=== PATIENT | female | born 2000 | race Caucasian/White ===

== ENCOUNTER 2023-09-22 14:31 | Emergency (ER) | payer OTHER, SELFPAY ==
[2023-09-22 14:43] VITALS: BP 144/95; PULSE 106; RESP 20; TEMP 36.7; O2SAT 100; BMI 26.6
--- NOTE | 2023-09-22 14:48 | ED.GENADUL1 ---
HPI - General Adult General Chief complaint: Vaginal Bleeding Stated complaint: MISCARRIAGE Time Seen by Provider: 09/22/23 14:34 Source: patient Mode of arrival: walk-in Limitations: no limitations Related Data Home Medications Medication Instructions Recorded Confirmed No Known Home Medications 09/22/23 09/22/23 Allergies Allergy/AdvReac Type Severity Reaction Status Date / Time No Known Drug Allergies Allergy Verified 09/22/23 14:47 PFSH PFSH Social History Smoking status: Never smoker Exam Constitutional Vital Signs, click to edit/add: Last Vital Signs Temp 98.1 F 09/22/23 14:43 Pulse 106 H 09/22/23 14:43 Resp 20 09/22/23 14:43 BP 144/95 H 09/22/23 14:43 Pulse Ox 100 09/22/23 14:43 O2 Del Method Room Air 09/22/23 14:43 Course Vital Signs Vital signs: Vital Signs Temperature 98.1 F 09/22/23 14:43 Pulse Rate 106 H 09/22/23 14:43 Respiratory Rate 20 09/22/23 14:43 Blood Pressure 144/95 H 09/22/23 14:43 Pulse Oximetry 100 09/22/23 14:43 Oxygen Delivery Method Room Air 09/22/23 14:43 Temperature 98.1 F 09/22/23 14:43 Pulse Rate 106 H 09/22/23 14:43 Respiratory Rate 20 09/22/23 14:43 Blood Pressure 144/95 H 09/22/23 14:43 Pulse Oximetry 100 09/22/23 14:43 Oxygen Delivery Method Room Air 09/22/23 14:43 Medical Decision Making MDM Narrative Medical decision making narrative: patient declined the need for Tylenol or nausea medication. her quantitative hCG level is only 32, she has a positive blood type and ultrasound with no evidence of intrauterine gestation or ectopic , patient was counseled by attending physician that she has suffered a miscarriage, she should follow closely with her CAREER SERVICES REPRESENTATIVE and return to the Emergency Room if symptoms change or worsen. Medical Records Medical records reviewed: Yes I reviewed the patient's medical records Lab Data Lab results reviewed: Yes I reviewed the patient's lab results Labs: Lab Results 09/22/23 09/22/23 Range/Units 15:00 15:07 HCG, Quant 32 mIU/mL Urine Color Lt. yellow (YELLOW) Urine Clarity Clear (CLEAR) Urine pH 6.0 (5.0-9.0) Ur Specific [place] 1.010 (1.005-1.025) Urine Protein Negative (NEG/TRACE) mg/dL Urine Glucose (UA) Negative (NEGATIVE) mg/dL Urine Ketones Negative (NEGATIVE) mg/dL Urine Occult Blood Moderate A (NEGATIVE) Urine Nitrite Negative (NEGATIVE) Urine Bilirubin Negative (NEGATIVE) Urine Urobilinogen 0.2 (0.2-1.0) EU/dL Ur Leukocyte Esterase Negative (NEGATIVE) Urine RBC 2-5 A (0-2) #/HPF Urine WBC None seen (NONE SEEN) #/HPF Ur Squamous Epith Cells Rare (NONE/RARE) #/LPF Urine Crystals None seen (None Seen) #/HPF Urine Bacteria Trace A (NONE SEEN) #/HPF Urine Casts None seen (NONE SEEN) #/LPF Urine Mucus None seen (NONE SEEN) Ur Culture Indicated? No Blood Type A Positive Imaging Data US - abdomen: Attestation: I have reviewed the pertinent imaging results. Radiologist's impression: Procedure: US OB transvaginal PROCEDURE: US OB transvaginal, 09/22/2023 3:15 PM EDT CLINICAL INDICATIONS: Encounter for first trimester , vaginal bleeding for one day, cramping 1 para 0 LMP 08/15/2023 Expected gestational age by LMP: 5 weeks 3 days Expected ELIANA by LMP: 05/21/2024 COMPARISON: None TECHNIQUE: Transvaginal first trimester obstetric sonogram, grayscale, color evaluation. FINDINGS: Uterus: Nonspecific focal thickening of the endometrium of the lower uterine segment measures up to 1.0 x 0.9 x 0.2 cm. Convincing sign of intrauterine is not identified. No sign of intrauterine gestational sac, yolk sac, embryonic pole or cardiac activity are documented. Maternal right ovary: 2.5 x 1.5 x 1.6 cm, volume 3 mL. Normal sonographic morphology. Maternal left ovary: Not identified. DUPLEX PELVIC VASCULATURE: There is intact flow within the right ovarian tissue by color-flow assessment. Arterial spectral tracing is identified from within. Right resistive index 0.55. No maternal pelvic mass or free fluid. IMPRESSION: 1. Nonspecific focal thickening of the lower uterine segment endometrial cavity up to 1.0 cm. 2. uncertain location. Convincing sign of intrauterine or extrauterine could not be documented. Differential considerations include too early to confirm by sonography, near complete spontaneous , ectopic . Correlation with serial quantitative beta-hCG and follow-up sonography is needed. 3. Normal maternal right ovarian sonographic morphology 4. Nonvisualization maternal left ovary 5. No sonographic sign of maternal right adnexal torsion Electronically authenticated by: STEFANO MORALES Date: 09/22/2023 16:09 Discharge Plan Discharge Chief Complaint: Vaginal Bleeding Clinical Impression: Miscarriage Patient Disposition: Home, Self-Care Time of Disposition Decision: 16:32 Condition: Good Mode of Transportation: Private Vehicle Prescriptions / Home Meds: No Action No Known Home Medications Instructions: Miscarriage (ED) Stand Alone Forms: Portal Instructions Referrals: ROBEL HOLT [Primary Care Provider] - 1 week ANNEMARIE PAYNE [Physician] - 1 week Discharge Date/Time: 09/22/23 16:38
[2023-09-22 15:33] LABS: Bilirubin Urine NEGATIVE (NEGATIVE); Blood Urine MODERATE (NEGATIVE); Clarity Urine CLEAR (CLEAR); Color Urine LT. YELLOW (YELLOW); Glucose Urine UA NEGATIVE (NEGATIVE); Ketones Urine NEGATIVE (NEGATIVE); Leukocyte Esterase Urine NEGATIVE (NEGATIVE); Nitrite Urine NEGATIVE (NEGATIVE); Protein Urine NEGATIVE (NEG/TRACE); Urobilinogen Urine 0.2 EU/dL (0.2-1.0)
[2023-09-22 15:45] LABS: Urine Microscopic Indicated YES
[2023-09-22 16:01] LABS: Bacteria Urine TRACE #/HPF (NONE SEEN); Cast Seen? NONE SEEN #/LPF (NONE SEEN); Crystals Seen? None Seen #/HPF (None Seen); Mucus Urine NONE SEEN (NONE SEEN); Squamous Epithelial Cell Urine RARE #/LPF (NONE/RARE); Urine Culture Indicated NO; WBC Urine NONE SEEN #/HPF (NONE SEEN)
[2023-09-22 16:08] LABS: HCG Quantitative 32 mIU/mL
== END 2023-09-22 16:38 | disposition home or self-care (01) ==
PROVIDERS: Physician Assistant; Emergency Provider Emergency Medicine; PCP Family Medicine
DX: O03.9 Complete or unspecified spontaneous abortion without complication (principal)
CPT/HCPCS: 36415; 76817; 81001; 84702; 86900; 86901; 99285

== ENCOUNTER 2023-09-29 16:48 | Outpatient (OUT) | payer OTHER, SELFPAY ==
[2023-09-29 17:41] LABS: HCG Quantitative <1 mIU/mL
== END 2023-09-29 16:49 | disposition home or self-care (01) ==
PROVIDERS: PCP Family Medicine; Visit Provider Obstetrics & Gynecology
DX: O46.90 Antepartum hemorrhage, unspecified, unspecified trimester (principal); Z3A.00 Weeks of gestation of pregnancy not specified
CPT/HCPCS: 36415; 84702

== ENCOUNTER 2024-07-21 14:26 | Emergency (ER) | payer OTHER, SELFPAY ==
[2024-07-21 14:29] VITALS: BP 145/91; PULSE 99; TEMP 36.6; O2SAT 99; BMI 26.8
--- OUTSIDE RECORDS SUMMARY | 2024-07-21 14:33 | XMS_ITS | CCD ---
Author Organization [facility] Inform ion [facility] Care Team Providers Care 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 Name Role Phone NONE, XXXX Primary Care Physician Unavailab Robel Singh Unavailable YANET, DR HUSTON Attending Unavailable YANET, DR HUSTON Consulting Unavailable YANET, DR HUSTON Primary Care Unavailable YANET, DR UHSTON Admitting Unavailable Unavailable Primary Care Provider UnavailMERCEDES Mckenna Referring Unavailable PETE, MERCEDES Attending Unavailable Unallocated, Noms Provider Primary Care Provider DO Robel Holt Primary Care Provider [phone] MANAS French Attending Provider Robel Holt Primary Care Unavailable Roma French Attending Unavailable Roma French Admitting Unavailable PRASAD PAYNE Attending Unavailable PRASAD PAYNE Attending Unavailable ROMA FRENCH Attending Unavailable PRASAD PAYNE Attending Unavailable PRASAD PAYNE Referring Unavailable Medications Current Medications Medication Drug Class(es) Dates Sig (Normalized) Sig (Original) Vit-Fe Fumarate-FA ( 1 PLUS 1 PO) (3 sources) Vit-Fe Fumarate-FA ( 1 PLUS 1 PO) Take by mouth. 0 Active Progesterone 200 MG suppository (3 sources) Start: 10-03-2023 Progesterone 200 MG suppository Indications: Infertility counseling , Encounter for gynecological examination (general) (routine) without abnormal findings Insert 1 suppository into the vagina at bedtime. Do this all until 12 completed weeks of . 30 suppository 3 10/03/2023 Active promethazine hydrochloride 25 mg oral tablet (2 sources) Phenothiazine Start: 01-12-2024 End: 02-11-2024 take 1 tablet by mouth every six hours for nausea promethazine (Phenergan) 25 MG tablet Indications: Hx of migraine during , Vomiting or nausea of Take 1 tablet (25 mg) by mouth every 6 (six) hours if needed for nausea (Headache) 30 tablet 1 01/12/2024 02/11/2024 Active Completed/Discontinued Medications Medication Drug Class(es) Dates Sig (Normalized) Sig (Original) predniSONE 20 mg oral tablet (1 source) Start: 04-12-2022 take 1 tablet by mouth once daily predniSONE 20 mg Tab 20 mg = 1 tab(s), Oral, As Directed, Take three tabs by mouth daily for 4 days, take two tabs by mouth daily for 4 days, take one tab by mouth daily for 4 days, # 24 tab(s), Refills(s) 0, Pharmacy: [facility], 174, cm, 04/12/22 10:47:00 EDT... Start Date: 04/12/22 Status: Ordered vit no.124/iron/folic ( VITAMIN ORAL) (1 source) vit no.124/iron/folic ( VITAMIN ORAL) Take by mouth. 0 Active Comment on above: Take by mouth. 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 Allergic reactions (2 sources) Contact dermatitis; Translations: [Unspecified contact dermatitis, unspecified cause] Onset: 04-12-2022 Episodic Contraceptive and procreative management (4 sources) Patient encounter status; Translations: [Encounter for fertility testing] Onset: 08-23-2023 08-23-2023 Episodic Female infertility (1 source) Primary female infertility; Translations: [Female infertility, unspecified] 08-23-2023 Chronic Malaise and fatigue (1 source) Other fatigue; Translations: [Other fatigue] Onset: 06-11-2024 Episodic Menstrual disorders (2 sources) Menorrhagia; Translations: [Excessive and frequent menstruation with regular cycle] Chronic Other complications of (2 sources) Nausea and vomiting; Translations: [Vomiting of , unspecified] 01-12-2024 Episodic Other complications of (2 sources) A/N care: poor obstetric history; Translations: [Supervision of with other poor reproductive or obstetric history, first trimester] 01-12-2024 Episodic Other nervous system disorders (2 sources) H/O: migraine; Translations: [Personal history of other diseases of the nervous system and sense organs] 01-12-2024 Episodic Other nutritional; endocrine; and metabolic disorders (1 source) Overweight in adulthood with body mass index of 25 or more but less than 30; Translations: [Body mass index (BMI) 26.0-26.9, adult] Onset: 04-12-2022 Episodic Other nutritional; endocrine; and metabolic disorders (1 source) Abnormal weight gain Episodic Other and delivery including normal (1 source) Normal ; Translations: [Encounter for supervision of normal first , first trimester] 01-04-2024 Episodic Other skin disorders (1 source) Rash and other nonspecific skin eruption; Translations: [Rash and other nonspecific skin eruption] Onset: 06-11-2024 Episodic Residual codes; unclassified (1 source) Gestation period, 11 weeks; Translations: [11 weeks gestation of ] 01-04-2024 Episodic Residual codes; unclassified (2 sources) Gestation period, 6 weeks; Translations: [Less than 8 weeks gestation of ] 01-12-2024 Episodic Residual codes; unclassified (1 source) Family history of diseases of the skin and subcutaneous tissue; Translations: [Family history of diseases of the skin and subcutaneous tissue] Onset: 06-11-2024 Episodic Residual codes; unclassified (1 source) Personal history of other complications of , childbirth and the puerperium; Translations: [Personal history of other complications of , childbirth and the puerperium] Onset: 06-11-2024 Episodic Syncope (1 source) Syncope and collapse Episodic Unclassified (1 source) Body mass index 20-24 - normal 03-25-2020 Unclassified (1 source) Influenza vaccination status 03-25-2020 Unclassified (1 source) Non-smoker 03-25-2020 Results Test Name Value Interpretation Reference Range Facil ity ALOK Antinuclear Antibodieson 06-11-2024 Antinuclear Abs, IFA Negative Normal . [facility] Comment on above: Result Comment: Nega tive <1:80 Borderline 1:80 Positive >1:80 ICAP nomenclature: AC-0 For more information about Hep-2 cell patterns use ANApatterns.org, the official website for the International Consensus on Antinuclear Antibody (ALOK) Patterns (ICAP). Performed at: - [facility] [id number] Forest Fire Officer: Dimas Vincent PhD, Phone: [phone] PERFORMED BY: [place] [address] PATHOLOGIST FRAME TABLE OPERATOR HELPER BENTON CASTELLANOS M.D. Performed By: #### A NA, RA #### [facility] , C reactive protein [Mass/vol ume] in Serum or PlasmaOrdered By: Roma French on 06-11-2024 CRP [Mass/Vol] < 0.5 mg/dL 0.0-0.5 [facility] C-Reactive Proteinon 024 CRP [Mass/Vol] mg/L Normal 0.0-0.5 [facility] Comment on above: Result Comment: PERF ORMED BY: [place] [address] PATHOLOGIST FRAME TABLE OPERATOR HELPER BENTON CASTELLANOS M.D. Performed By: #### C RP #### [facility] [address] [place] [address] [place] Erythrocyte Sedimentation Ra basilia 06-11-2024 ESR (Bld) [Velocity] 17 mm/h Normal 0-19 [facility] Comment on above: Result Comment: PERF ORMED BY: [place] [address] PATHOLOGIST FRAME TABLE OPERATOR HELPER BENTON CASTELLANOS M.D. Performed By: #### C BCNO, ESR #### [facility] [address] [place] [address] [place] Erythrocyte distribution wid th [Ratio] by Automated countOrdered By: Roma French on 06-11-2024 Erythrocyte distribution width (RBC) [Ratio] 13.3 % Normal 11.9-15.3 [facility] Comment on above: Performed By: #### C BCNO, ESR #### [facility] [address] [place] [address] [place] Erythrocyte sedimentation ra te by Photometric methodOrdered By: Roma French on 06-11-2024 ESR Photometric method (Bld) [Velocity] 17 mm/hr 0-19 [facility] Erythrocytes [#/volume] in B lood by Automated countOrdered By: Roma French on 06-11-2024 RBC (Bld) [#/Vol] 4.94 10*6/uL Normal 3.60-5.00 [facility] Comment on above: Performed By: #### C BCNO, ESR #### [address] Hematocrit [Volume Fraction] of Blood by Automated countOrdered By: Roma French on 06-11-2024 Hematocrit (Bld) [Volume fraction] 42.7 % Normal 34.0-46.4 [facility] Comment on above: Performed By: #### C BCNO, ESR #### [address] Hemoglobin [Mass/volume] in BloodOrdered By: Roma French on 06-11-2024 Hemoglobin (Bld) [Mass/Vol] 14.2 g/dL Normal 11.8-15.4 [facility] Comment on above: Performed By: #### C BCNO, ESR #### [address] Hemogram CBC Without Diffon 06-11-2024 Mean Corpuscular HGB Conc 33.4 g/dL Normal 32.0-35.0 [facility] Comment on above: Performed By: #### C BCNO, ESR #### [address] WBC (Bld) [#/Vol] 8.5 10*3/uL Normal 3.8-11.6 The Counts include 234 beds at the [facility] Comment on above: Performed By: #### C BCNO, ESR #### [place] [address] [place] Leukocytes [#/volume] correc tanvir for nucleated erythrocytes in Blood by Automated counOrdered By: Roma French on 06-11-2024 WBC corrected for nucl RBC Auto (Bld) [#/Vol] 8.5 10*3/uL 3.8-11.6 [facility] MCH [Entitic mass] by Automa tanvir countOrdered By: Roma French on 06-11-2024 MCH (RBC) [Entitic mass] 28.8 pg Normal 24.7-34.3 [facility] Comment on above: Performed By: #### C JAN, ESR #### [address] MCHC Auto (RBC) [Mass/Vol]Or dered By: Roma French on 06-11-2024 MCHC (RBC) [Mass/Vol] 33.4 g/dL 32.0-35.0 [facility] MCV [Entitic volume] by Auto mated countOrdered By: Roma French on 06-11-2024 MCV (RBC) [Entitic vol] 86.3 fL Normal 80-100 [facility] Comment on above: Performed By: #### C JAN, ESR #### [address] Platelet mean volume [Entiti c volume] in Blood by Automated countOrdered By: Roma French on 06-11-2024 Platelet mean volume (Bld) [Entitic vol] 8.8 fL Normal 6.3-10.7 [facility] Comment on above: Performed By: #### C JAN, ESR #### [address] Platelets [#/volume] in Bloo d by Automated countOrdered By: Roma French on 06-11-2024 Platelets (Bld) [#/Vol] 293 10*3/uL Normal 150-450 [facility] Comment on above: Performed By: #### C JAN, ESR #### [address] Rheumatoid Factoron 06-11-20 Rheumatoid Factor <10.0 Normal <14.0 [facility] Comment on above: Result Comment: Perf ormed at: - [facility] [address] [id number] Forest Fire Officer: Dimas Vincent PhD, Phone: [phone] Performed By: #### A RA CHRISTOPHER #### [facility] , CBC panel Auto (Bld)on 08-23 Erythrocyte distribution width (RBC) [Ratio] 12.0 % Normal 11.5-15.0 [facility] Comment on above: Order Comment: Speci men Type: BLOOD SPECIMEN Ordering Facility: [facility] Address: [address] [place] [address] Performed By: #### 5 8410-2 #### [facility] [place] [id number] [facility] [place] [address] [place] Hematocrit (Bld) [Volume fraction] 42.7 % Normal 36.0-46.0 [facility] Comment on above: Order Comment: Speci men Type: BLOOD SPECIMEN Ordering Facility: [facility] Address: [address] [place] [address] Performed By: #### 5 8410-2 #### [facility] [place] [id number] [address] [place] [address] [place] Hemoglobin (Bld) [Mass/Vol] 14.4 g/dL Normal 11.5-15.5 [facility] Comment on above: Order Comment: Speci men Type: BLOOD SPECIMEN Ordering Facility: [facility] Address: [address] [place] [address] Performed By: #### 5 8410-2 #### [facility] CLIA [id number] [address] [place] [address] [place] MCH (RBC) [Entitic mass] 29.7 pg Normal 26.0-34.0 [facility] Comment on above: Order Comment: Speci men Type: BLOOD SPECIMEN Ordering Facility: [facility] Address: [address] [place] [address] Performed By: #### 5 8410-2 #### [facility] CLIA [id number] [address] [place] [address] [place] MCHC (RBC) [Mass/Vol] 33.7 g/dL Normal 30.5-36.0 [facility] Comment on above: Order Comment: Speci men Type: BLOOD SPECIMEN Ordering Facility: [facility] Address: [address] [place], [place] [id number] Performed By: #### 5 8410-2 #### [facility] CLIA [id number] [address] [place] [address] [place] MCV (RBC) [Entitic vol] 88.0 fL Normal 80.0-100.0 [facility] Comment on above: Order Comment: Speci men Type: BLOOD SPECIMEN Ordering Facility: [facility] Address: [address] [place], [place] [id number] Performed By: #### 5 8410-2 #### [facility] CLIA [id number] [address] [place] [address] [place] Nucleated RBC (Bld) [#/Vol] 10*3/uL Normal <0.01 [facility] Comment on above: Order Comment: Speci men Type: BLOOD SPECIMEN Ordering Facility: [facility] Address: [address] [place], [place] [id number] Performed By: #### 5 8410-2 #### [facility] CLIA [id number] [address] [place] [address] [place] Platelet mean volume (Bld) [Entitic vol] 10.3 fL Normal 9.0-12.7 [facility] Comment on above: Order Comment: Speci men Type: BLOOD SPECIMEN Ordering Facility: [facility] Address: [address] [place] [address] Performed By: #### 5 8410-2 #### [facility] CLIA [id number] [address] [place] [address] [place] Platelets (Bld) [#/Vol] 305 10*3/uL Normal 150-400 [facility] Comment on above: Order Comment: Speci men Type: BLOOD SPECIMEN Ordering Facility: [facility] Address: [address] [place] [address] Performed By: #### 5 8410-2 #### [facility] CLIA [id number] [address] [place] [address] [place] RBC (Bld) [#/Vol] 4.85 10*6/uL Normal 3.90-5.20 [facility] Comment on above: Order Comment: Speci men Type: BLOOD SPECIMEN Ordering Facility: [facility] Address: [address] [place] [address] Performed By: #### 5 8410-2 #### [facility] CLIA [id number] [address] [place] [address] [place] WBC (Bld) [#/Vol] 6.73 10*3/uL Normal 3.70-11.00 [facility] Comment on above: Order Comment: Speci men Type: BLOOD SPECIMEN Ordering Facility: [facility] Address: [address] [place] [address] Performed By: #### 5 8410-2 #### [facility] CLIA [id number] [address] [place] [address] [place] Erythrocyte distribution width (RBC) [Ratio] 12.0 % 11.5 - 15.0 % [facility] Hematocrit (Bld) [Volume fraction] 42.7 % 36.0 - 46.0 % [facility] Hemoglobin (Bld) [Mass/Vol] 14.4 g/dL 11.5 - 15.5 g/dL [facility] MCH (RBC) [Entitic mass] 29.7 pg 26.0 - 34.0 pg [facility] MCHC (RBC) [Mass/Vol] 33.7 g/dL 30.5 - 36.0 g/dL [facility] MCV (RBC) [Entitic vol] 88.0 fL 80.0 - 100.0 fL [facility] Nucleated RBC (Bld) [#/Vol] <0.01 k/uL [facility] Platelet mean volume (Bld) [Entitic vol] 10.3 fL 9.0 - 12.7 fL [facility] Platelets (Bld) [#/Vol] 305 10*3/uL 150 - 400 k/uL [facility] RBC (Bld) [#/Vol] 4.85 10*6/uL 3.90 - 5.20 m/uL [facility] WBC (Bld) [#/Vol] 6.73 10*3/uL 3.70 - 11. 00 k/uL [facility] CNOVon 08-23-2023 CNOV Office Visit (REIMN) EVELYN CANELA ([id number]) 1 F Date Time Provider Department 08/23/23 11:30 AM MERCEDES SEXTON During your visit today, we recorded the following information about you: Blood pressure Weight Height Last Period 133/86 80.7 kg 1.727 m 08/15/23 Mercedes Sexton MD 08/23/2023 12:05 PM Signed [facility]ERT[facility] NEW PATIENT CLINIC NOTE SERVICE DATE: 08/23/2023 SERVICE TIME: 12:02 PM NAME: Evelyn Caneal CHIEF COMPLAINT: Procreative management and counseling HISTORY OF PRESENT ILLNESS Evelyn Canela is a 22 year old female TTC since early 2021, unprotected intercourse since 10/2020 >18 months trying actively Reports 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 Hx STIs: negative Dyspareunia: negative History reviewed. No pertinent past medical history. History reviewed. No pertinent surgical history. FAMILY HISTORY Problem Relation Age of Onset Breast Cancer Maternal Grandmother other (bells palsy) Paternal Grandmother Heart Paternal Grandmother Stroke Paternal Grandfather multiple Social History Tobacco Use Smoking status: Never Smokeless tobacco: Never Substance Use Topics Alcohol use: Not Currently Drug use: Never Current Outpatient Medications Medication Sig vit no.124/iron/folic ( VITAMIN ORAL) Take by mouth. No current facility-administered medications for this visit. Allergies As of Date: 08/23/2023 (No Known Allergies) Fully Assessed 08/23/2023 Partner History Both patient and partner give permission to discuss test results and medication information with the other. Partner gives permission to access EMR. 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 Diagnoses and all orders for this visit: Primary female infertility Encounter for fertility testing - XR HYSTEROSALPINGOGRAM; Future Encounter for preconception consultation - TYPE + SCREEN; Future - TSH BLD; Future - VARICELLA ZOSTER IGG; Future - RUBELLA IGG AB; Future - SYPHILIS TOTAL W/REFLEX; Future - HIV 1 2 COMBO(AG/AB),WITH REFLEX TO DIFFERENTIATION; Future - HEPATITIS C ANTIBODY IA WITH CONFIRMATION; Future - HEP B SURF AG SCRN; Future - CBC; Future Female Evaluation: - screening: TANDS, rubella and varicella immunity, carrier screening - ovulatory assessment: recommended OPKs - tubal evaluation: HSG Male Evaluation: - semen analysis Counseling: - counseled on diagnosis of infertility and etiologies - counseled on fecundity rate and outcomes, including SAB and genetic anomaly rates Next Steps: - folate and vit D supplementation - complete evaluation outlined above - follow up for next steps once all testing is completed, can see [facility] if all test are normal and route is IUI Dr. Mercedes Sexton M.D. Reproductive Endocrinology and Infertility I spent 40 minutes in the visit, with more than 50% of the total [id number] time of the visit in counseling / coordination of care. I spent a total of 50 minutes on the date of the service which included preparing to see the patient, [id number] patient care, completing clinical documentation, obtaining and/or reviewing separately obtained history, counseling and educating the patient/family/caregi abeba, ordering medications, tests, or procedures, and care coordination (not separately reported). To patients reading this note: Please be advised the primary purpose of this note is for me to communicate with myself and other members of your medical team. Standard sentence structure is not always used. Medical terminology and medical abbreviations may be used. There may be grammatical and typographical errors missed in proofreading. Allergies As of Date: 08/23/2023 (No Known Allergies) Date Reviewed: 08/23/2023 Reviewed by: Earnestine Jacobs - Fully Assessed Reason for Visit: Cons (more content not included)... Normal [facility] CONSULT PROGon 08-23-2023 CONSULT PROG HNO ID: [id number] Author: Mercedes Sexton MD Service: ? 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 Hx STIs: negative Dyspareunia: negative History reviewed. No pertinent past medical history. History reviewed. No pertinent surgical history. FAMILY HISTORY Problem Relation Age of Onset Breast Cancer Maternal Grandmother other (bells palsy) Paternal Grandmother Heart Paternal Grandmother Stroke Paternal Grandfather multiple Social History Tobacco Use Smoking status: Never Smokeless tobacco: Never Substance Use Topics Alcohol use: Not Currently Drug use: Never Current Outpatient Medications Medication Sig vit no.124/iron/folic ( VITAMIN ORAL) Take by mouth. No current facility-administered medications for this visit. Allergies As of Date: 08/23/2023 (No Known Allergies) Fully Assessed 08/23/2023 Partner History Both patient and partner give permission to discuss test results and medication information with the other. Partner gives permission to access EMR. 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 Diagnoses and all orders for this visit: Primary female infertility Encounter for fertility testing - XR HYSTEROSALPINGOGRAM; Future Encounter for preconception consultation - TYPE + SCREEN; Future - TSH BLD; Future - VARICELLA ZOSTER IGG; Future - RUBELLA IGG AB; Future - SYPHILIS TOTAL W/REFLEX; Future - HIV 1 2 COMBO(AG/AB),WITH REFLEX TO DIFFERENTIATION; Future - HEPATITIS C ANTIBODY IA WITH CONFIRMATION; Future - HEP B SURF AG SCRN; Future - CBC; Future Female Evaluation: - screening: TANDS, rubella and varicella immunity, carrier screening - ovulatory assessment: recommended OPKs - tubal evaluation: HSG Male Evaluation: - semen analysis Counseling: - counseled on diagnosis of infertility and etiologies - counseled on fecundity rate and outcomes, including SAB and genetic anomaly rates Next Steps: - folate and vit D supplementation - complete evaluation outlined above - follow up for next steps once all testing is completed, can see [facility] if all test are normal and route is IUI Dr. Mercedes Sexton M.D. Reproductive Endocrinology and Infertility I spent 40 minutes in the visit, with more than 50% of the total [id number] time of the visit in counseling / coordination of care. I spent a total of 50 minutes on the date of the service which included preparing to see the patient, [id number] patient care, completing clinical documentation, obtaining and/or reviewing separately obtained history, counseling and educating the patient/family/caregi abeba, ordering medications, tests, or procedures, and care coordination (not separately reported). To patients reading this note: Please be advised the primary purpose of this note is for me to communicate with myself and other members of your medical team. Standard sentence structure is not always used. Medical terminology and medical abbreviations may be used. There may be grammatical and typographical errors missed in proofreading. Normal [facility] HBV surface Ag Ser Qlon 09- HBV surface Ag Ql (S) Negative Normal Negative [facility] Comment on above: Order Comment: Speci men Type: BLOOD SPECIMEN Ordering Facility: [facility] Address: [address] [place] [id number] Performed By: #### 3 1201-7, 34414-8, 5195-3 #### [facility] CLIA [id number] [address] [place] [address] [place] HCV Ab Ser Qlon 08-23-2023 HCV Ab Ql (S) Negative Normal Negative [facility] Comment on above: Order Comment: Speci men Type: BLOOD SPECIMEN Ordering Facility: [facility] Address: [address] [place] [address] Result Comment: The result suggests no evidence of active infection with Hepatitis C virus. Should recent infection be suspected, repeat testing may be considered 4-6 weeks after this draw. Performed By: #### 1 6128-1 #### [facility] CLIA [id number] [address] [place] [address] [place] HEP B SURF AG SCRNon 023 HBV surface Ag Ql (S) Negative Negative [facility] HEPATITIS C ANTIBODY IA WITH CONFIRMATIONon 08-23-2023 HCV Ab Ql (S) Negative Negative [facility] HIV 1+2 Ab IA Qlon 3 HIV 1 and 2 Ab IA.rapid Nom [facility] HIV 1+2 Ab+HIV1 p24 Ag IA Ql Non-Reactive Nonreactive [facility] HIV immunoassay testing algorithm interpretation (S/P/Bld) [Interp] [facility] HIV 1 and 2 Ab IA.rapid Nom Normal [facility] Comment on above: Order Comment: Speci men Type: BLOOD SPECIMEN Ordering Facility: [facility] Address: [address] [place] [address] Result Comment: Test not indicated. Performed By: #### 3 1201-7, 13245-8, 5195-3 #### [facility] CLIA [id number] [address] [place] [address] [place] HIV 1+2 Ab+HIV1 p24 Ag IA Ql Non-Reactive Normal Nonreactive [facility] Comment on above: Order Comment: Speci men Type: BLOOD SPECIMEN Ordering Facility: [facility] Address: [address] [place] [address] Performed By: #### 3 1201-7, 76097-2, 5195-3 #### [facility] CLIA [id number] [address] [place] [address] [place] HIV immunoassay testing algorithm interpretation (S/P/Bld) [Interp] Normal [facility] Comment on above: Order Comment: Speci men Type: BLOOD SPECIMEN Ordering Facility: [facility] Address: [address] [place] [address] Result Comment: No e vidence of HIV-1 or HIV-2 infection. Should recent infection be suspected, repeat testing may be considered 2-3 weeks after this draw. [place] Rev. Code 3701.243(E): This information has been disclosed to you from confidential records protected from disclosure by state law. ???You shall make no further disclosure of this information without the specific, written, and informed release of the individual to whom it pertains or as otherwise permitted by state law. A general authorization for the release of medical or other information is not sufficient for the purpose of the release of HIV test results or diagnoses. Performed By: #### 3 1201-7, 68418-5, 5195-3 #### [facility] CLIA [id number] [address] [place] [address] [place] RUBELLA IGG ABon 08-23-2023 Rubella IgG, Qual Positive Positive [facility] RUBELLA IGG AB, QUAL Positive Normal Positive [facility] Comment on above: Order Comment: Speci men Type: BLOOD SPECIMEN Ordering Facility: [facility] Address: [address] [place] [address] Result Comment: The result suggests recent or past exposure to Rubella virus or history of Rubella vaccination. Positive result may also be seen due to presence of passively-transferred antibodies. Please correlate with patient's history. Performed By: #### V ZVG2, RUBIGG #### [facility] CLIA [id number] [address] [place] [address] [place] Reagin and Treponema pallidu m IgG and IgM [Interp]on 08-23-2023 T. pallidum IgG+IgM IA Ql (S) Non-Reactive Nonreactive [facility] T. pallidum IgG+IgM IA Ql (S) Non-Reactive Normal Nonreactive [facility] Comment on above: Order Comment: Speci men Type: BLOOD SPECIMEN Ordering Facility: [facility] Address: [address] [place], [place] [phone] Performed By: #### 3 1201-7, 05160-3, 5195-3 #### [facility] CLIA [id number] [address] [place] [address] [place] Reagin+T pallidum IgG+IgM Se rPl-Impon 08-23-2023 Reagin and Treponema pallidum IgG and IgM [Interp] Cannot exclude recent Treponemal infection if specimen collected within 7-10 days after appearance of suspect lesions or 2-3 weeks after an exposure. Clinical correlation is required. Normal [facility] Comment on above: Order Comment: Speci men Type: BLOOD SPECIMEN Ordering Facility: [facility] Address: [address] [place], [place] [id number] Performed By: #### 3 1201-7, 74701-6, 5195-3 #### [facility] CLIA [id number] [address] [place] [address] [place] SYPHILIS TOTAL W/REFLEXon Reagin and Treponema pallidum IgG and IgM [Interp] Cannot exclude recent Treponemal infection if specimen collected within 7-10 days after appearance of suspect lesions or 2-3 weeks after an exposure. Clinical correlation is required. [facility] TSH BLDon 08-23-2023 TSH Qn 2.000 m[IU]/L 0.270 - 4.200 mIU/L [facility] TSH SerPl-aCncon 08-23-2023 TSH Qn 2.000 m[IU]/L Normal 0.270-4.200 [facility] Comment on above: Order Comment: Berti nazanin Type: BLOOD SPECIMEN Ordering Facility: [facility] Address: [address] [place], [place] [id number] Result Comment: If t he patient is , TSH reference range varies by gestational period: First Trimester (weeks 9-12): 0.180-2.990 mIU/L Second Trimester: 0.110-3.980 mIU/L Third Trimester: 0.480-4.710 mIU/L Evens Mcclure et al. A Practical Approach for the Verifications and Determination of Site- and Trimester-Specific Reference Intervals for Thyroid Function tests in . Thyroid, 2019:29:3:412-420. Brad E, et al. 2017 Guidelines of the [place] [employer] for the Diagnosis and Management of Thyroid Disease during and the . Thyroid, 2017:27:3:315-389. Performed By: #### 3 016-3 #### [facility] CLIA [id number] [facility] TYPE + SCREENon 08-23-2023 ABO group Nom (Bld) A [facility] Blood group antibody screen Ql Negative [facility] HIstorical Ab Scr Status Negative [facility] Rh Nom (Bld) Positive [facility] Type and Screen Expiration 08/26/2023 23:59 [facility] ABO A Normal [facility] Comment on above: Order Comment: Speci men Type: BLOOD SPECIMENOrdering Facility: [facility] Address: [address] [place] [address] Performed By: #### T SCR ####[facility] BLOOD BANKCLIA [id number] [address] HISTORICAL AB SCR STATUS Negative Normal [facility] Comment on above: Order Comment: Speci men Type: BLOOD SPECIMENOrdering Facility: [facility] Address: [address] [address] Performed By: #### T SCR ####[facility] BLOOD BANKCLIA [id number] [address] OF [place] Rh Nom (Bld) Positive Normal [facility] Comment on above: Order Comment: Speci men Type: BLOOD SPECIMENOrdering Facility: [facility] Address: [address] [address] Performed By: #### T SCR ####[facility] BLOOD BANKCLIA [id number] [address] TYPE AND SCREEN EXPIRATION 08/26/2023 23:59 Normal [facility] Comment on above: Order Comment: Alberto back Type: BLOOD SPECIMENOrdering Facility: [facility] Address: [address] [place] [address] Performed By: #### T SCR ####[facility] BLOOD BANKCLIA [id number] [address] VARICELLA ZOSTER IGGon 08-23 Varicella Zoster IgG, Qual Positive Positive [facility] VARICELLA ZOSTER IGG, QUAL Positive Normal Positive [facility] Comment on above: Order Comment: Alberto back Type: BLOOD SPECIMEN Ordering Facility: [facility] Address: [address] [place] [address] Result Comment: The result suggests recent or past exposure to Varicella-Zoster virus or chickenpox vaccination or zoster vaccination. Positive result may also be seen due to presence of passively-transferred antibodies. Please correlate with patient's history. Performed By: #### V ZVG2, CYNDI #### [facility] CLIA [id number] [address] CNPLory [facility]02[facility] EVELYN CANELA ([id number]) 1 F Date Time Provider Department 08/02/23 [facility] PROVIDER KIM During your visit today, we recorded the following information about you: Kuldeep Pryor Ma 08/02/2023 3:12 PM Signed LVM for the patient at [phone] with instructions on signing up for [facility]. New consult scheduled with Dr. Sexton the end of July - will need to send questionnaire. Kuldeep Pryor Ma August 02, 2023 3:12 PM Allergies As of Date: 08/02/2023 (Not on File) Date Reviewed: Never Reviewed Reason for Visit: New Patient [172] Problem List As Of Date: 08/02/2023 (None) Encounter Status:Closed by KULDEEP PRYOR MA on 08/02/23 Normal [facility] CBC AUTO DIFFon 03-31-2023 BASO # 0.0 103/ul Normal 0.0-0.1 [facility] Comment on above: Performed By: #### C BC #### [facility] [address] [address] [address] Eleno Gonzáles Basophils/100 WBC (Bld) 0.4 % Normal 0.2-2.0 [facility] Comment on above: Performed By: #### C BC #### [facility] [address] [place] [address] Dr. Eleno Gonzáles EO # 0.1 103/ul Normal 0.0-0.7 [facility] Comment on above: Performed By: #### C BC #### [facility] [address] [address] [address] Eleno Gonzáles Eosinophils/100 WBC (Bld) 0.6 % Critically low 0.9-7.0 [facility] Comment on above: Performed By: #### C BC #### [facility] [address] [address] [address] Eleno Gonzáles Erythrocyte distribution width (RBC) [Ratio] 12.7 % Normal 11.0-15.0 [facility] Comment on above: Performed By: #### C BC #### [facility] [address] [place] [address] Dr. Eleno Gonzáles Hematocrit (Bld) [Volume fraction] 41.2 % Normal 36.0-48.0 [facility] Comment on above: Performed By: #### C BC #### [facility] [address] [place] [address] Dr. Eleno Gonzáles Hemoglobin (Bld) [Mass/Vol] 13.7 g/dL Normal 12.0-16.0 [facility] Comment on above: Performed By: #### C BC #### [facility] [address] [place] [address] Dr. Eleno Gonzáles IG # 0.02 10e3/ul Normal 0.00-0.03 [facility] Comment on above: Performed By: #### C BC #### [facility] [address] [place] [address] Dr. Eleno Gonzáles IG % 0.2 % Normal 0.0-0.5 [facility] Comment on above: Performed By: #### C BC #### [facility] [address] [place] [address] Dr. Eleno Gonzáles LYMPH # 2.3 103/ul Normal 1.2-3.8 [facility] Comment on above: Performed By: #### C BC #### [facility] [address] [place] [address] Dr. Eleno Gonzáles Lymphocytes/100 WBC (Bld) 28.2 % Normal 20.5-60.0 [facility] Comment on above: Performed By: #### C BC #### [facility] [address] [place] [address] Dr. Eleno Gonzáles MANUAL DIFF REQ NO Normal [facility] Comment on above: Performed By: #### C BC #### [facility] [address] [place] [address] Dr. Eleno Gonzáles MCH (RBC) [Entitic mass] 29.2 pg Normal 26.7-34.0 [facility] Comment on above: Performed By: #### C BC #### [facility] [address] [place] [address] Dr. Eleno Gonzáles MCHC (RBC) [Mass/Vol] 33.3 g/dL Normal 29.9-35.2 [facility] Comment on above: Performed By: #### C BC #### [facility] [address] [place] [address] Dr. Eleno Gonzáles MCV (RBC) [Entitic vol] 87.8 fL Normal 81.0-99.0 [facility] Comment on above: Performed By: #### C BC #### [facility] [address] [place] [address] Dr. Eleno Gonzáles MONO # 0.7 103/ul Normal 0.3-0.8 [facility] Comment on above: Performed By: #### C BC #### [facility] [address] [place] [address] Dr. Eleno Gonzáles Monocytes/100 WBC (Bld) 8.5 % Normal 1.7-12.0 [facility] Comment on above: Performed By: #### C BC #### [facility] [address] [place] [address] Dr. Eleno Gonzáles NEUT # 5.2 103/ul Normal 1.4-6.5 [facility] Comment on above: Performed By: #### C BC #### [facility] [address] [place] [address] Dr. Eleno Gonzáles Neutrophils/100 WBC (Bld) 62.1 % Normal 43.0-75.0 [facility] Comment on above: Performed By: #### C BC #### [facility] [address] [place] [address] Dr. Eleno Gonzáles Platelet mean volume (Bld) [Entitic vol] 9.8 fL Normal 9.5-13.5 [facility] Comment on above: Performed By: #### C BC #### [facility] [address] [place] [address] Dr. Eleno Gonzáles PLT 246 103/ul Normal 150-[address] [facility] Comment on above: Performed By: #### C BC #### [facility] [address] [place] [address] Dr. Eleno Gonzáles RBC 4.69 106/ul Normal 4.20-5.[address] [facility] Comment on above: Performed By: #### C BC #### [facility] [address] [place] [address] Dr. Eleno Gonzáles WBC 8.3 103/ul Normal 4.0-11.[address] [facility] Comment on above: Performed By: #### C BC #### [facility] [address] [address] [address] Eleno Gonzáles LIPID PROFILEon 03-31-2023 CHOL-HDL RATIO NORM SEE BELOW Normal [facility] Comment on above: Result Comment: 3.3 - 4.4 LOW RISK 4.4 - 7.1 AVERAGE RISK 7.1 - 11.0 MODERATE RISK >11.0 HIGH RISK Performed By: #### C MP, LIPID, TSH #### [facility] [address] [address] [address] Eleno Gonzáles Cholesterol [Mass/Vol] 168 mg/dL Normal <=200 [facility] Comment on above: Performed By: #### C MP, LIPID, TSH #### [facility] [address] [address] [address] Eleno Gonzáles Cholesterol in HDL [Mass/Vol] 71 mg/dL Critically high 40-60 [facility] Comment on above: Performed By: #### C MP, LIPID, TSH #### [facility] [address] [place] [address] Dr. Eleno Gonzáles Cholesterol in LDL [Mass/Vol] 86.4 mg/dL Normal [facility] Comment on above: Performed By: #### C MP, LIPID, TSH #### [facility] [address] [place] [address] Dr. Eleno Gonzáles Cholesterol.total/C holesterol in HDL [Mass ratio] 2.4 {ratio} Normal [facility] Comment on above: Performed By: #### C MP, LIPID, TSH #### [facility] [address] [place] [address] Dr. Eleno Gonzáles HDL NORMAL > or = 60 mg/dl - LO W CARDIOVASCULAR RISK <40 mg/dl - HIGH CARDIOVASCULAR RISK Normal [facility] Comment on above: Performed By: #### C MP, LIPID, TSH #### [facility] [address] [place] [address] Dr. Eleno Gonzáles LDL CALC NORMAL SEE BELOW Normal [facility] Comment on above: Result Comment: <100 mg/dl OPTIMAL 100 - 129 mg/dl NEAR OR ABOVE OPTIMAL 130 - 159 mg/dl BORDERLINE HIGH 160 - 189 mg/dl HIGH >190 mg/dl VERY HIGH Performed By: #### C MP, LIPID, TSH #### [facility] [address] [address] [address] Eleno Gonzáles Triglyceride [Mass/Vol] 53 mg/dL Normal <=150 [facility] Comment on above: Performed By: #### C MP, LIPID, TSH #### [facility] [address] [address] [address] Eleno Gonzáles VLDL CALC 10.6 mg/dL Normal [facility] Comment on above: Performed By: #### C MP, LIPID, TSH #### [facility] [address] [address] [address] Eleno Gonzáles PROF 14(COMP METB)on 023 Albumin [Mass/Vol] 3.7 g/dL Normal 3.4-5.0 [facility] Comment on above: Performed By: #### C MP, LIPID, TSH #### [facility] [address] [address] [address] Eleno Gonzáles Albumin/Globulin [Mass ratio] 1.0 {ratio} Normal [facility] Comment on above: Performed By: #### C MP, LIPID, TSH #### [facility] [address] [address] [address] Eleno Gonzáles ALP [Catalytic activity/Vol] 61 U/L Normal 46-116 [facility] Comment on above: Performed By: #### C MP, LIPID, TSH #### [facility] [address] [address] [address] Eleno Gonzáles ALT [Catalytic activity/Vol] 26 U/L Normal 14-59 [facility] Comment on above: Performed By: #### C MP, LIPID, TSH #### [facility] [address] [address] [address] Eleno Gonzáles Anion gap [Moles/Vol] 8.6 mmol/L Normal [facility] Comment on above: Performed By: #### C MP, LIPID, TSH #### [facility] [address] [place] [address] Dr. Eleno Gonzáles AST [Catalytic activity/Vol] 16 U/L Normal 15-37 [facility] Comment on above: Performed By: #### C MP, LIPID, TSH #### [facility] [address] [address] [address] Eleno Gonzáles Bilirubin [Mass/Vol] 0.5 mg/dL Normal 0.2-1.0 [facility] Comment on above: Performed By: #### C MP, LIPID, TSH #### [facility] [address] [place] [address] Dr. Eleno Gonzáles Calcium [Mass/Vol] 9.1 mg/dL Normal 8.5-10.1 [facility] Comment on above: Performed By: #### C MP, LIPID, TSH #### [facility] [address] [place] [address] Dr. Eleno Gonzáles Chloride [Moles/Vol] 104 mmol/L Normal 98-107 [facility] Comment on above: Performed By: #### C MP, LIPID, TSH #### [facility] [address] [place] [address] Dr. Eleno Gonzáles CO2 [Moles/Vol] 29.4 mmol/L Normal 21.0-32.0 [facility] Comment on above: Performed By: #### C MP, LIPID, TSH #### [facility] [address] [place] [address] Dr. Eleno Gonzáles Creatinine [Mass/Vol] 0.71 mg/dL Normal 0.55-1.02 [facility] Comment on above: Performed By: #### C MP, LIPID, TSH #### [facility] [address] [place] [address] Dr. Eleno Gonzáles EGFR-AF LIBERIAN >60 Normal >=60 [facility] Comment on above: Performed By: #### C MP, LIPID, TSH #### [facility] [address] [place] [address] Dr. Eleno Gonzáles EGFR-NON AF LIBERIAN >60 Normal >=60 [facility] Comment on above: Performed By: #### C MP, LIPID, TSH #### [facility] [address] [place] [address] Dr. Eleno Gonzáles Globulin (S) [Mass/Vol] 3.8 g/dL Normal [facility] Comment on above: Performed By: #### C MP, LIPID, TSH #### [facility] [address] [place] [address] Dr. Eleno Gonzáles Glucose [Mass/Vol] 77 mg/dL Normal 74-106 [facility] Comment on above: Performed By: #### C MP, LIPID, TSH #### [facility] [address] [place] [address] Dr. Eleno Gonzáles Potassium [Moles/Vol] 4.0 mmol/L Normal 3.5-5.1 [facility] Comment on above: Performed By: #### C MP, LIPID, TSH #### [facility] [address] [place] [address] Dr. Eleno Gonzáles Protein [Mass/Vol] 7.5 g/dL Normal 6.4-8.2 [facility] Comment on above: Performed By: #### C MP, LIPID, TSH #### [facility] [address] [place] [address] Dr. Eleno Gonzáles Sodium [Moles/Vol] 138 mmol/L Normal 136-145 [facility] Comment on above: Performed By: #### C MP, LIPID, TSH #### [facility] [address] [place] [address] Dr. Eleno Gonzáles Urea nitrogen [Mass/Vol] 9.0 mg/dL Normal 7.0-18.0 [facility] Comment on above: Performed By: #### C MP, LIPID, TSH #### [facility] [address] [place] [address] Dr. Eleno Gonzáles Urea nitrogen/Creatinine [Mass ratio] 12.7 mg/mg Normal [facility] Comment on above: Performed By: #### C MP, LIPID, TSH #### [facility] [address] [place] [address] Dr. Eleno Gonzáles TSHon 03-31-2023 TSH 2.056 uIU/mL Normal 0.358-3.740 [facility] Comment on above: Performed By: #### C MP, LIPID, TSH #### [facility] [address] [place] [address] Dr. Eleno Gonzáles UA RANDOM W/MICROSCOPICon BACTERIA TRACE Abnormal NONE SEEN [facility] Comment on above: Performed By: #### U AMIC #### [facility] [address] [place] [address] Dr. Eleno Gonzáles Bilirubin Ql (U) Negative Normal NEGATIVE [facility] Comment on above: Performed By: #### U AMIC #### [facility] [address] [address] [address] Eleno Gonzáles CAST NONE SEEN Normal NONE SEEN [facility] Comment on above: Performed By: #### U AMIC #### [facility] [address] [place] [address] Dr. Eleno Gonzáles Clarity (U) CLEAR Normal CLEAR [facility] Comment on above: Performed By: #### U AMIC #### [facility] [address] [place] [address] Dr. Eleno Gonzáles Color (U) YELLOW Normal YELLOW [facility] Comment on above: Performed By: #### U AMIC #### [facility] [address] [place] [address] Dr. Eleno Gonzáles Crystals LM Nom (Urine sed) NONE SEEN Normal NONE SEEN [facility] Comment on above: Performed By: #### U AMIC #### [facility] [address] [place] [address] Dr. Eleno Gonzáles Epithelial cells LM Ql (Urine sed) MODERATE Abnormal NONE SEEN /RARE [facility] Comment on above: Performed By: #### U AMIC #### [facility] [address] [place] [address] Dr. Eleno Gonzáles Glucose Ql (U) Negative Normal NEGATIVE The [facility] Comment on above: Performed By: #### U AMIC #### [facility] [address] [place] [address] Dr. Eleno Gonzáles Hemoglobin Ql (U) Negative Normal NEGATIVE The [facility] Comment on above: Performed By: #### U AMIC #### [facility] [address] [place] [address] Dr. Eleno Gonzáles Ketones Ql (U) Negative Normal NEGATIVE The [facility] Comment on above: Performed By: #### U AMIC #### [facility] [address] [place] [address] Dr. Eleno Gonzáles LEUKOCYTES Negative Normal NEGATIVE [facility] Comment on above: Performed By: #### U AMIC #### [facility] [address] [place] [address] Dr. Eleno Gonzáles MUCOUS NONE SEEN Normal NONE SEEN [facility] Comment on above: Performed By: #### U AMIC #### [facility] [address] [place] [address] Dr. Eleno Gonzáles Nitrite Ql (U) Negative Normal NEGATIVE The [facility] Comment on above: Performed By: #### U AMIC #### [facility] [address] [place] [address] Dr. Eleno Gonzáles pH (U) 6.5 [pH] Normal 5-[address] [facility] Comment on above: Performed By: #### U AMIC #### [facility] [address] [place] [address] Dr. Eleno Gonzáles RBC 0-2 Normal 0-2 [facility] Comment on above: Performed By: #### U AMIC #### [facility] [address] [place] [address] Dr. Eleno Gonzáles SPEC GRAVITY 1.020 Normal 1.005-<=1.[address] [facility] Comment on above: Performed By: #### U AMIC #### [facility] [address] [place] [address] Dr. Eleno Gonzáles UA PROTEIN Negative Normal NEGATIVE/ TRACE [facility] Comment on above: Performed By: #### U AMIC #### [facility] [address] [place] [address] Dr. Eleno Gonzáles Urobilinogen Qn (U) 0.2 {Arabella'U}/dL Normal 0.2 - 1. 0 [facility] Comment on above: Performed By: #### U AMIC #### [facility] [address] [place] [address] Dr. Eleno Gonzáles WBC NONE SEEN Normal NONE SEEN [facility] Comment on above: Performed By: #### U [facility] #### [facility] [address] [address] [address] Eleno Gonzáles Family Medicine Office/Clini c Noteon 04-12-2022 Family Medicine Office/Clinic Note Chief Complaint Est Poison jarret? HPI Staff Evelyn is a 21 year old female presenting for rash Symptom onset: 2 weeks ago Location: Right thigh, back of legs, forearms, hands Characteristics at beginning: red, itchy Characteristics now: Itch/Pain: itch Treatments: Hydrocortisone Ever had in past?: yes Change in soaps, detergents, exposures: no Allergies: no Fever: no History of Present Illness I have reviewed and verified the staff HPI to be accurate for this encounter. Patient presents in office with rash x 14 days. Reports red rash that is spreading, located on her ankles, forearms, hands, abdomen and thigh. Reports rash is very itchy but no pain. Has had this in the past, [place] living in [place] and being in contact with many environmental exposures. No changes to soaps or detergents. Denies fever, trouble shallowing, chills, SOB and wheezing. Has tried Hydrocortisone OTC with no improvement. Review of Systems PHQ Score Initial Depression Screen Score: 0 Physical Exam Vitals & Measurements T: 36.5 ?C(Oral) HR: 79(Peripheral) BP: 118/72 SpO2: 98% HT: 174.0 cm HT: 174 cm WT: 80.9 kg WT: 80.9 kg BMI: 26.72 General: Well developed, well nourished, in no acute distress Neck: no adenopathy Lungs: clear to auscultation throughout, no wheezing, no rales. No respiratory distress Cardio: regular rate and rhythm, no murmur Skin: Erythematous maculopapular rash located on bilateral hands, forearms, bilateral ankles, around umbilicus and right thigh. No current clustering, open areas or drainage. No significant edema. No surrounding warmth or induration. Mental Status: Alert and oriented x3. Normal mood and affect Assessment/Plan 1. Contact dermatitis (L25.9: Unspecified contact dermatitis, unspecified cause) Given exam, will treat with Prednisone Taper. Discussed typical duration of contact dermatitis anywhere from 7-21 days typically. Advised steroids of any kind do not make rash completely resolve but help with itching and inflammation. Follow up with PCP if not improving over next 10 days or significantly changing appearance. Patient and/or parent verbalized understanding of treatment plan. Ordered: predniSONE, 20 mg = 1 tab(s), Oral, As Directed, Take three tabs by mouth daily for 4 days, take two tabs by mouth daily for 4 days, take one tab by mouth daily for 4 days, # 24 tab(s), Refills(s) 0, Pharmacy: [facility], 174, cm, 04/12/22 10:47:00 EDT... 2. BMI 26.0-26.9,adult (Z68.26: Body mass index [BMI] 26.0-26.9, adult) Ordered: Body Mass Index (BMI) documented 3008F Follow-up No qualifying data available Patient Education Contact Dermatitis Problem List/Past Medical History Ongoing BMI 23.0-23.9, adult Influenza vaccination up to date Non-smoker Historical No qualifying data Procedure/Surgical History None. Medications predniSONE 20 mg Tab, 20 mg= 1 tab(s), Oral, As Directed Allergies No Known Allergies Social History Alcohol - Denies Alcohol Use, 03/25/2020 Substance Abuse - Denies Substance Abuse, 03/25/2020 Tobacco - Denies Tobacco Use, 03/25/2020 Never (less than 100 in lifetime) Tobacco Use:. Never Smokeless Tobacco Use:., 04/12/2022 Never (less than 100 in lifetime) Tobacco Use:. Never Smokeless Tobacco Use:., 05/29/2020 Family History Family history is negative Immunizations Vaccine Date Status influenza virus vaccine, inactivated 07/31/2019 Recorded Normal [facility] Comment on above: Result Comment: Elec tronically Signed By: Clement ABDALLA, Justine Emerson\.monica\Date and Time Signed: 04/12/22 11:02 EDT Patient Educationon 04-12-20 Patient Education Dermatology Contact Dermatitis Dermatitis is redness, soreness, and swelling (inflammation) of the skin. Contact dermatitis is a reaction to certain substances that touch the skin. Many different substances can cause contact dermatitis. There are two types of contact dermatitis: ? Irritant contact dermatitis. This type is caused by something that irritates your skin, such as having dry hands from washing them too often with soap. This type does not require previous exposure to the substance for a reaction to occur. This is the most common type. ? Allergic contact dermatitis. This type is caused by a substance that you are allergic to, such as poison jarret. This type occurs when you have been exposed to the substance (allergen) and develop a sensitivity to it. Dermatitis may develop soon after your first exposure to the allergen, or it may not develop until the next time you are exposed and every time thereafter. What are the causes? Irritant contact dermatitis is most commonly caused by exposure to: ? Makeup. ? Soaps. ? Detergents. ? Bleaches. ? Acids. ? Metal salts, such as nickel. Allergic contact dermatitis is most commonly caused by exposure to: ? Poisonous plants. ? Chemicals. ? Jewelry. ? Latex. ? Medicines. ? Preservatives in products, such as clothing. What increases the risk? You are more likely to develop this condition if you have: ? A job that exposes you to irritants or allergens. ? Certain medical conditions, such as asthma or eczema. What are the signs or symptoms? Symptoms of this condition may occur on your body anywhere the irritant has touched you or is touched by you. ? Symptoms include: ? Dryness or flaking. ? Redness. ? Cracks. ? Itching. ? Pain or a burning feeling. ? Blisters. ? Drainage of small amounts of blood or clear fluid from skin cracks. With allergic contact dermatitis, there may also be swelling in areas such as the eyelids, mouth, or genitals. How is this diagnosed? This condition is diagnosed with a medical history and physical exam. ? A patch skin test may be performed to help determine the cause. ? If the condition is related to your job, you may need to see an occupational therapist home based. How is this treated? This condition is treated by checking for the cause of the reaction and protecting your skin from further contact. Treatment may also include: ? Steroid creams or ointments. Oral steroid medicines may be needed in more severe cases. ? Antibiotic medicines or antibacterial ointments, if a skin infection is present. ? Antihistamine lotion or an antihistamine taken by mouth to ease itching. ? A bandage (dressing). Follow these instructions at home: Skin care ? Moisturize your skin as needed. ? Apply cool compresses to the affected areas. ? Try applying baking soda paste to your skin. Stir water into baking soda until it reaches a paste-like consistency. ? Do not scratch your skin, and avoid friction to the affected area. ? Avoid the use of soaps, perfumes, and dyes. Medicines ? Take or apply [id number] and prescription medicines only as told by your health care provider. ? If you were prescribed an antibiotic medicine, take or apply the antibiotic as told by your health care provider. Do not stop using the antibiotic even if your condition improves. Bathing ? Try taking a bath with: ? Epsom salts. Follow the instructions on the packaging. You can get these at your local pharmacy or grocery store. ? Baking soda. Pour a small amount into the bath as directed by your health care provider. ? Colloidal oatmeal. Follow the instructions on the packaging. You can get this at your local pharmacy or grocery store. ? Bathe less frequently, such as every other day. ? Bathe in lukewarm water. Avoid using hot water. Bandage care ? If you were given a bandage (dressing), change it as told by your health care provider. ? Wash your hands with soap and water before and after you change your dressing. If soap and water are not available, use hand casino dealer. General instructions ? Avoid the substance that caused your reaction. If you do not know what caused it, keep a journal to try to track what caused it. Write down: ? What you eat. ? What cosmetic products you use. ? What you drink. ? What you wear in the affected area. This includes jewelry. ? Check the affected areas every day for signs of infection. Check for: ? More redness, swelling, or pain. ? More fluid or blood. ? Warmth. ? Pus or a bad smell. ? Keep all follow-up visits as told by your health care provider. This is important. Contact a health care provider if: ? Your condition does not improve with treatment. ? Your condition gets worse. ? You have signs of infection such as swelling, tenderness, redness, soreness, or warmth in the affected area. ? You have a fever. ? You have new symptoms. Get help right away if: (more content not included)... Normal [facility] [place] 03-02-2022 Consent [id number] .[id number]:127 Normal [facility] In office Testingon 01-28-20 22 In office Testing [id number]# 1.00CD:127 Normal [facility] Ambulatory Clinical Summaryo n 06-03-2021 Ambulatory Clinical Summary {[id number]}CD:[id number] Normal [facility] [place] 06-03-2021 Consent [id number] .[id number]:127 [facility] Family Medicine Office/Clini c Noteon 06-03-2021 Family Medicine Office/Clinic Note Chief Complaint EST cc rash HPI Staff Patient 20 yo presents w crispin Symptom onset:Last Tuesday Location:stomach up Characteristics at beginning:rash Characteristics now:rash spreading Itch/Pain:itch Treatments:Benadryl Ever had in past?no Change in soaps, detergents, exposures:no Allergies:poison jarret Fever: no History of Present Illness I have reviewed and verified the staff HPI to be accurate for this encounter. Patient presents in office for concern of rash. Rash started about 8 days ago. Rash is pruritic. Denies pain. Has been using Benadryl with minimal improvement. Rashes present to stomach and upper extremities, chest. Patient denies changes in lotions, soaps, medications, diet. Patient has had significant allergic rashes to poison jarret in the past-although she feels this is different in appearance than typical rash. [place] Denies fever. Denies shortness of breath or wheezing. Review of Systems PHQ Score Initial Depression Screen Score: 0 Constitutional: fever:no, chills:no, sweats:_, weakness:_, body aches:no, HANSEN:no Skin: rash:yes, + rash to abdomen, upper extremities, neck, chin. Positive pruritus. Denies pain. Denies open areas or drainage Respiratory: chest congestion/tightness: no, shortness of breath: no, cough:_, wheezing:no, orthopnea:_ Musculoskeletal: swollen joint:no, joint pain:no, muscle aches:no Physical Exam Vitals & Measurements T: 36.9 ?C (Oral) HR: 91(Peripheral) BP: 102/78 SpO2: 98% HT: 173 cm HT: 173.0 cm WT: 77.1 kg WT: 77.1 kg BMI: 25.76 General: Well developed, well nourished, in no acute distress Lungs: Normal respiratory effort, no conversational dyspnea, appears in no acute respiratory distress Skin: Erythematous maculopapular rash present to lower abdomen/suprapubic area, anterior and left lateral neck, left lower chin and cheek, bilateral upper extremities. No current blistering, open areas or drainage. No significant edema. No surrounding warmth or induration Mental Status: Alert and oriented x3. Normal mood and affect Assessment/Plan 1. BMI 25.0-25.9,adult (Z68.25: Body mass index [BMI] 25.0-25.9, adult) The standard range for ages 18 and older is >=18.5 and < 25 kg/m2. Your BMI today was above this range, this falls in the overweight to obese category and there are medical benefits to weight loss. We can offer counselling, referral, and/or medical support in addressing this problem. Your BMI and weight management will be followed at subsequent visits. Ordered: Office Visit Level 3 Est 39994 2. Contact dermatitis (L25.9: Unspecified contact dermatitis, unspecified cause) Given exam, will treat with Kenalog IM in office. May use calamine otc topically. Discussed typical duration of contact dermatitis anywhere from 7-21 days typically. Advised steroids of any kind do not make rash completely resolve but help with itching and inflammation. Follow up with PCP if not improving over next 10 days or significantly changing appearance. Patient and/or parent verbalized understanding of treatment plan. She is concerned as she states she gets frequent dermatitis-like rashes. States she is interested in possible allergy testing. Requesting referral. 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 Ordered: triamcinolone, 60 mg = 1.5 mL, Injection, IntraMuscular, Once, Stop date 06/03/21 13:44:00 EDT, Routine, Start date 06/03/21 13:44:00 EDT, 06/03/21 13:44:00 EDT [facility] External Ambulatory Referral Office Visit Level 3 Est 19101 Follow-up No qualifying data available Patient Education BMI for Adults Problem List/Past Medical History Ongoing BMI 23.0-23.9, adult Influenza vaccination up to date Non-smoker Historical No qualifying data Procedure/Surgical History None. Medications triamcinolone acetonide 40 mg/mL Inj Susp, 60 mg= 1.5 mL, IntraMuscular, Once Allergies No Known Allergies Social History Alcohol - Denies Alcohol Use, 03/25/2020 Substance Abuse - Denies Substance Abuse, 03/25/2020 Tobacco - Denies Tobacco Use, 03/25/2020 Never (less than 100 in lifetime) Tobacco Use:. Never Smokeless Tobacco Use:., 05/29/2020 Family History Family history is negative Immunizations Vaccine Date Status influenza virus vaccine, inactivated 07/31/2019 Recorded Normal [facility] Comment on above: Result Comment: Elec tronically Signed By: GOPAL MUGRUIA, Judy Lee\.br\Date and Time Signed: 06/03/21 13:49 EDT Patient Educationon 06-03-20 21 Patient Education Nutrition BMI for Adults Body mass index (BMI) is a number that is calculated from a person's weight and height. BMI may help to estimate how much of a person's weight is composed of fat. BMI can help identify those who may be at higher risk for certain medical problems. How is BMI used with adults? BMI is used as a screening tool to identify possible weight problems. It is used to check whether a person is obese, overweight, healthy weight, or underweight. How is BMI calculated? BMI measures your weight and compares it to your height. This can be done either in [place] or metric measurements. Note that charts are available to help you find your BMI quickly and easily without having to do these calculations yourself. To calculate your BMI in [place] measurements, your health care provider will: 1. Measure your weight in pounds (lb). 2. Multiply the number of pounds by 703. ? For example, for a person who weighs 180 lb, multiply that number by 703, which equals 126,540. 3. Measure your height in inches (in). Then multiply that number by itself to get a measurement called inches squared. ? For example, for a person who is 70 in tall, the inches squared measurement is 70 in x 70 in, which equals 4900 inches squared. 4. Divide the total from Step 2 (number of lb x 703) by the total from Step 3 (inches squared): 126,540 ? 4900 = 25.8. This is your BMI. To calculate your BMI in metric measurements, your health care provider will: 1. Measure your weight in kilograms (kg). 2. Measure your height in meters (m). Then multiply that number by itself to get a measurement called meters squared. ? For example, for a person who is 1.75 m tall, the meters squared measurement is 1.75 m x 1.75 m, which is equal to 3.1 meters squared. 3. Divide the number of kilograms (your weight) by the meters squared number. In this example: 70 ? 3.1 = 22.6. This is your BMI. How is BMI interpreted? To interpret your results, your health care provider will use BMI charts to identify whether you are underweight, normal weight, overweight, or obese. The following guidelines will be used: ? Underweight: BMI less than 18.5. ? Normal weight: BMI between 18.5 and 24.9. ? Overweight: BMI between 25 and 29.9. ? Obese: BMI of 30 and above. Please note: ? Weight includes both fat and muscle, so someone with a muscular build, such as an athlete, may have a BMI that is higher than 24.9. In cases like these, BMI is not an accurate measure of body fat. ? To determine if excess body fat is the cause of a BMI of 25 or higher, further assessments may need to be done by a health care provider. ? BMI is usually interpreted in the same way for men and women. Why is BMI a useful tool? BMI is useful in two ways: ? Identifying a weight problem that may be related to a medical condition, or that may increase the risk for medical problems. ? Promoting lifestyle and diet changes in order to reach a healthy weight. Summary ? Body mass index (BMI) is a number that is calculated from a person's weight and height. ? BMI may help to estimate how much of a person's weight is composed of fat. BMI can help identify those who may be at higher risk for certain medical problems. ? BMI can be measured using Fijian measurements or metric measurements. ? To interpret your results, your health care provider will use BMI charts to identify whether you are underweight, normal weight, overweight, or obese. This information is not intended to replace advice given to you by your health care provider. Make sure you discuss any questions you have with your health care provider. Document Released: 07/26/2005 Document Revised: 10/27/2018 Document Reviewed: 09/27/2018 [employer] Patient Education ? 2019 [employer]. [facility] Physician Referralon 021 Physician Referral [id number] .[id number]:127 [facility] Vital Signs Date Time Vital Sign Value Performing Clinician Facility 01-12-2024 15:13-0500 Body mass index (BMI) [Ratio] 26.98 kg/m2 Prasad Colemani DO Work Phone: [facility] 01-12-2024 15:13-0500 Body weight 85.28 kg Prasad Visci DO Work Phone: [facility] 01-12-2024 15:13-0500 Diastolic blood pressure 80 mm[Hg] Prasad Visci DO Work Phone: [facility] 01-12-2024 15:13-0500 Systolic blood pressure 136 mm[Hg] Prasad Visci DO Work Phone: [facility] 08-23-2023 10:59-0400 Body height 172.7 cm Mercedes Sexton MD Work Phone: [facility] 08-23-2023 10:59-0400 Body weight 80.74 kg Mercedes Sexton MD Work Phone: [facility] 08-23-2023 10:59-0400 Diastolic blood pressure 86 mm[Hg] Mercedes Sexton MD Work Phone: [facility] 08-23-2023 10:59-0400 Systolic blood pressure 133 mm[Hg] Mercedes Sexton MD Work Phone: [facility] 09-06-2022 16:20-0400 Body height 175.26 cm Robel Kalynradha Other [facility] Other 09-06-2022 16:20-0400 Body mass index (BMI) [Ratio] 26.73 kg/m2 Robel Holt Other [facility] Other 09-06-2022 16:20-0400 Body temperature 98.2 [degF] Robel Holt Other [facility] Other 09-06-2022 16:20-0400 Body weight 82.1 kg Robel Kalynradha Other [facility] Other 09-06-2022 16:20-0400 Diastolic blood pressure 76 mm[Hg] Robel Holt Other [facility] Other 09-06-2022 16:20-0400 Respiratory rate 18 /min Robel Holt Other [facility] Other 09-06-2022 16:20-0400 SaO2% (BldA) [Mass fraction] 99 % Robel Mccainradha Other [facility] Other 09-06-2022 16:20-0400 Systolic blood pressure 116 mm[Hg] Robel Holt Other [facility] Other 04-12-2022 10:43-0400 Blood Pressure Location [facility] 04-12-2022 10:43-0400 Body temperature 97.7 [degF] Justine Gray [facility] 04-12-2022 10:43-0400 Diastolic blood pressure 72 mm[Hg] Justine [facility] 04-12-2022 10:43-0400 Heart rate 79 /min Justine Vaughan [facility] 04-12-2022 10:43-0400 SaO2% (BldA) [Mass fraction] 98 % Justine Gray [facility] 04-12-2022 10:43-0400 Systolic blood pressure 118 mm[Hg] Justine Vaughan [facility] Encounters Encounter Date Encounter Type Care Provider Facility Start: 07-16-2024 End: 07-16-2024 ambulatory PRASAD VISCI Not Available Start: 07-05-2024 End: 07-05-2024 ambulatory PRASAD A VISCI Not Available Start: 06-11-2024 End: 06-11-2024 Patient encounter procedure DO Robel Hotl Work Phone: [facility] Start: 06-11-2024 End: 06-11-2024 ambulatory DO Robel Holt Work Phone: [facility] Work Phone: Start: 06-11-2024 End: 06-11-2024 ambulatory ROMASelene FRENCH Not Available Start: 01-26-2024 End: 01-30-2024 ambulatory PRASAD A VISCI Not Available Start: 01-26-2024 End: 01-26-2024 ambulatory PRASAD VISCI Not Available Start: 01-20-2024 End: 01-20-2024 ambulatory PRASAD VISCI Not Available Start: 01-12-2024 End: 01-12-2024 ambulatory PRASAD A VISCI Not Available Start: 01-12-2024 End: 01-12-2024 Office outpatient visit 15 minutes Prasad A Visci DO Work Phone: [facility] Comment on above: GA: 6w6d Start: 01-04-2024 End: 01-04-2024 flow sheet [facility] Nurse [facility] Comment on above: GA: 5w5d Start: 01-04-2024 End: 02-07-2024 ambulatory PRASAD VISCI Not Available Start: 08-23-2023 End: 08-24-2023 ambulatory MERCEDES SEXTON Facility:[facility] Start: 08-23-2023 End: 08-23-2023 Patient encounter procedure Mercedes Sexton MD Work Phone: [facility] Comment on above: Primary female infer tility (Primary Dx); Encounter for fertility testing; Encounter for preconception consultation Start: 08-02-2023 Telephone encounter [facility] Provider [facility] Comment on above: New Patient Start: 04-06-2023 Encounter for genera l adult medical examination without abnormal findings DR ROBEL HOLT [facility] Start: 03-31-2023 End: 04-01-[address] ROBEL HOLT Facility: Start: 03-31-2023 End: 04-01-2023 Encounter for general adult medical examination without abnormal findings DR ROBEL HOLT Facility: Start: 03-29-2023 End: 03-29-2023 ambulatory Robel Holt Other Contacts+ Other Start: 03-29-2023 Encounter for genera l adult medical examination without abnormal findings Robel Holt [facility] Start: 03-29-2023 Telephone encounter Robel Holt [facility] Start: 09-06-2022 End: 09-06-2022 ambulatory Robel Holt Other Contacts+ Other Start: 09-06-2022 Encounter for genera l adult medical examination without abnormal findings Robel Holt [facility] Start: 09-06-2022 Periodic preventive med est patient 18-39 yrs Robel Holt [facility] Start: 04-12-2022 End: 04-12-2022 Patient encounter procedure Justinenidia Vaughan [facility] Procedures Date Procedure Procedure Detail Performing Clinician Start: 08-23-2023 Antibody screen MERCEDES COSBY Comment on above: Order Comment: Speci men Type: BLOOD SPECIMENOrdering Facility: [facility] Address: [address] [place] [id number] Performed By: #### T SCR ####CC MAIN BLOOD BANKIA [id number] [address] [place] None (qualifier value) Kathryn Vaughan Plan of Treatment Date Care Activity Detail Author Start: 07-25-2024 End: 07-25-2024 Patient encounter procedure 07/25/2024 2:30 PM EDT Office Visit [facility] [address] [place] [phone] Prasad Payne, DO [address] [place] [address] [facility] Start: 02-13-2024 End: 02-13-2024 ambulatory 02/13/2024 3:00 PM EDT Initial [facility] [address] [place] [phone] Prasad Payne, DO [address] [place] [address] [facility] Start: 01-23-2024 End: 01-23-2024 Professional / ancillary services management 01/23/2024 3:30 PM EST Ancillary Procedure [facility] [address] [place] [phone] [facility] Start: 01-20-2024 End: 01-20-2024 Professional / ancillary services management 01/20/2024 8:00 AM EST Ancillary Procedure [facility] [address] [place] [phone] [facility] Start: 01-04-2024 End: 01-04-2025 Bacteria identified in Urine by Culture Urine culture Microbiology Routine Encounter for supervision of normal first in first trimester Expected: 01/04/2024 (Approximate), Expires: 01/04/2025 [facility] Comment on above: Expected: 01/04/2024 (Approximate), Expi res: 01/04/2025 Start: 01-04-2024 End: 01-04-2025 Urinalysis complete panel - Urine Urinalysis with microscopic Lab Routine Encounter for supervision of normal first in first trimester Expected: 01/04/2024 (Approximate), Expires: 01/04/2025 [facility] Comment on above: Expected: 01/04/2024 (Approximate), Expi res: 01/04/2025 Start: 08-23-2023 End: 08-23-2024 Cath & saline/contrast sonohyster/hysterosalp i XR HYSTEROSALPINGOGRAM Radiology Routine Encounter for fertility testing Expected: 08/23/2023, Expires: 08/23/2024 [facility] Work Phone: Comment on above: Expected: 08/23/2023, Expires: Start: 07-29-2023 Influenza vaccination [facility] Start: 11-28-2022 DEPRESSION ASSESSMENT DEPRESSION ASSESSMENT [facility] Start: 2021 PAP TESTING PAP TESTING [facility] Start: 2019 Urine microalbumin profile [facility] Start: 2018 CHLAMYDIA SCREENING (18-24) CHLAMYDIA SCREENING (18-24) [facility] Start: 2018 GC (GONORRHEA) SCREENING (18-24) GC (GONORRHEA) SCREENING (18-24) [facility] Start: 2018 HEPATITIS C SCREENING HEPATITIS C SCREENING [facility] Start: 2018 HIV SCREENING HIV SCREENING [facility] Start: 2016 Meningococcal B Vaccine: Consider Based On Risk (1 of 2 - Patient Seeks Protection) Meningococcal B Vaccine: Consider Based On Risk (1 of 2 - Patient Seeks Protection) [facility] Start: 2014 PEDS TO ADULT TRANSITION ANNUAL ASSESSMENT PEDS TO ADULT TRANSITION ANNUAL ASSESSMENT [facility] Start: 2012 PEDS TO ADULT TRANSITION INITIAL DISCUSSION PEDS TO ADULT TRANSITION INITIAL DISCUSSION [facility] Start: 2009 HPV VACCINE (1 - 2-dose series) HPV VACCINE (1 - 2-dose series) [facility] Start: 06-01-2001 COVID-19 VACCINE (#1) COVID-19 VACCINE (#1) [facility] Start: 2000 HEPATITIS B (1 of 3 - 3-dose series) HEPATITIS B (1 of 3 - 3-dose series) [facility] Start: 2000 Hepatitis B Vaccine (1 of 3 - 3-dose series) Hepatitis B Vaccine (1 of 3 - 3-dose series) [facility] ABO/Rh ABO/Rh Lab Routi ne Encounter for supervision of normal first in first trimester Ordered: 01/04/2024 [facility] Work Phone: Comment on above: Ordered: 01/04/2024 Antibody screen Antibody screen Lab Routine Encounter for supervision of normal first in first trimester Ordered: 01/04/2024 [facility] Comment on above: Ordered: 01/04/2024 CBC W Auto Differential panel - Blood CBC and differential Lab Routine Encounter for supervision of normal first in first trimester Ordered: 01/04/2024 [facility] Comment on above: Ordered: 01/04/2024 Hepatitis B virus surface Ag [Presence] in Serum or Plasma by Immunoassay Hepatitis B surface antigen Lab Routine Encounter for supervision of normal first in first trimester Ordered: 01/04/2024 [facility] Comment on above: Ordered: 01/04/2024 HIV-1/HIV-2 antigen/antibody combination immunoassay HIV-1 and HIV-2 antibodies Lab Routine Encounter for supervision of normal first in first trimester Ordered: 01/04/2024 [facility] Comment on above: Ordered: 01/04/2024 Homogenous nuclear A b pattern [Titer] in Serum [facility] Nuclear Ab [Titer] i n Serum [facility] QNATAL(R) ADVANCED QNATAL(R) ADV ANCED Lab Routine Encounter for screening for chromosomal anomalies 11 weeks gestation of Ordered: 01/04/2024 [facility] Comment on above: Ordered: 01/04/2024 Reagin Ab [Presence] in Serum by RPR RPR Lab Routine Encounter for supervision of normal first in first trimester Ordered: 01/04/2024 [facility] Comment on above: Ordered: 01/04/2024 Rheumatoid factor [Units/volume] in Serum or Plasma [facility] Rubella antibody, IgG Rubella an tibody, IgG Lab Routine Encounter for supervision of normal first in first trimester Ordered: 01/04/2024 [facility] Comment on above: [facility]: [facility] Immunization Date Immunization Notes Care Provider [facility] 07-31-2019 influenza virus vacc ine, unspecified formulation Justine Vaughan [facility] Payers Date Payer Category Payer Self-pay 2020 Unknown [id number] 2000 Unknown [id number] 2.16.84 [id number] 2000 Unknown [id number] 2.16.84 [id number] 2000 Unknown [id number] 2.16.84 [id number] 2000 Unknown [id number] 2.16.84 [id number] 2000 Unknown [id number] 2.16.84 [id number] 2000 Unknown [id number] 2.16.84 [id number] 2000 Unknown [id number] 2.16.84 [id number] 2000 Unknown [id number] 2.16.84 [id number] 2000 Unknown [id number] 2.16.84 [id number] 1959 Unknown [id number] [id number] Unknown [id number] 2.16.8 [id number] Social History Date Type Detail Facility Start: 04-12-2022 End: 07-20-2023 Tobacco smoking status Never smoked tobacco (finding) [facility] Tobacco smoking status Never [facility] Start: 07-20-2023 End: 08-23-2023 Sex Assigned At Female [facility] smoking consumption unknown [facility] Start: 2000 Sex Assigned At Not on file [facility] Start: 07-20-2023 End: 08-23-2023 Tobacco use and exposure Smokeless tobacco non-user [facility] Start: 08-23-2023 Alcohol intake Ex-drinker (finding) [facility] Start: 07-20-2023 End: 08-23-2023 History of Social function [facility] Start: 01-04-2024 End: 01-12-2024 Alcohol intake Lifetime non-drinker (finding) [facility] How often to you hav e a drink containing alcohol? Never [facility] Start: 07-20-2023 Alcohol Comment caffeine intak e: 1-2 cups per day of tea [facility] Start: 12-09-2023 [facility] Start: 2000 Sex Assigned At Female F [facility] Clinical Notes 04-12-2022 to 01-12-2024 Prasad Payne, - 01/12/2024 3:00 PM Joel Patel RN - 01/04/2024 9:30 AM Mercedes Coronado MD - 08/23/2023 12:02 PM EDTTelephone Encounter - Kuldeep Pryor Ma - 08/02/2023 3:11 PM EDT Note Date & Type Note Facility 01-12-2024 History of Presen t illness Narrative 6w6d is complicated by: -Migraines z86.69, Z87.59 -A+, Immune -Last pap 07-20-23 Neg. -Hx of miscarriage, . O09.299 Chief Complaint Patient presents with Routine Visit 6 weeks 6 days. Glucose. Protein. (Could not leave urine) Pt is having migraines, and she is not getting any relief. Pt has tried several OTC medications. 1 headache a week, but lasts about 2 days. Current Outpatient Medications on File Prior to Visit Medication Sig Dispense Refill Vit-Fe Fumarate-FA ( 1 PLUS 1 PO) Take by mouth. Progesterone 200 MG suppository Insert 1 suppository into the vagina at bedtime. Do this all until 12 completed weeks of . 30 suppository 3 No current facility-administered medications on file prior to visit. She is here because of migraine headaches. She has a long history of them that have lasted at least 10 years. She is treated them herself primarily with biqz-yks-nswolru medicines like ibuprofen and Tylenol. She is taken Tylenol this and has had little to no relief. When she gets a migraine she has nausea and some vision changes as well as becoming light sensitive. She does get some tensing of the muscles in the back of her neck and shoulders. She is tried to increase her caffeine slightly and has seen little relief. We did an exam today and are cranial nerves 2-12 are grossly intact. Her heart showed a regular rate and rhythm without murmur, lungs are clear to auscultation. She has no focal deficits. She has a normal gait and no weakness is anywhere or facial drooping. We talked about options for management. I told her that taking ibuprofen early in is safe but that she would not be able to take it beyond about 22 weeks. I told her to start with 200 mg until alternated every 3 hours with Tylenol if needed. We also talked about treating her nausea and that that may help her headaches as well she can use Unisom and vitamin B6 at bedtime and also repeated in the morning. I have sent over some Phenergan for her to take 25 mg q.6 hours p.r.n.. We also discussed possibly increasing magnesium with an rulz-trh-nfgenhx supplement. If she continues to struggle she will call back. Otherwise she is scheduled to see me in a month and we will re-evaluate her at that time. Prasad Payne DO documented in this encounter [facility] 01-04-2024 History of Presen t illness Narrative Name: Evelyn Canela Date/Time of Service:01/04/2024 9:36 AM :2000 Age: 23 y.o. Chief Complaint Chief Complaint Patient presents with Initial Visit Evelyn Canela is a 23 y.o. at 5w5d with a working estimated date of delivery of 08/31/2024, by Last Menstrual Period who presents for an initial visit. OB History Para Term AB Living 2 0 0 0 1 0 SAB IAB Ectopic Multiple Live Births 1 0 0 0 0 # Outcome Date GA Lbr Heri/2nd Weight Sex Delivery Anes PTL Lv 2 Current 1 SAB Obstetric Comments Pap 07-20-23 Neg. Past Medical / Surgical History Past Medical History: Diagnosis Date Infertility counseling Syncope Varicella vaccination History reviewed. No pertinent surgical history. Family History Family History Problem Relation Name Age of Onset Breast cancer Maternal Grandmother Social History reports that she has never smoked. She has never used smokeless tobacco. She reports that she does not drink alcohol and does not use drugs. MEDICATIONS: Current Outpatient Medications on File Prior to Visit Medication Sig Dispense Refill Vit-Fe Fumarate-FA ( 1 PLUS 1 PO) Take by mouth. Progesterone 200 MG suppository Insert 1 suppository into the vagina at bedtime. Do this all until 12 completed weeks of . 30 suppository 3 No current facility-administered medications on file prior to visit. Allergies No Known Allergies Patient reports nausea and no vomiting. Discussed smaller meals, alla products, OTC Vitamin B6 50mg BID and Unisom 25mg BID Patient reports daily vitamin. Genetic and Chromosomal testing discussed. Last PAP: 07/20/23 Neg ASSESSMENT / PLAN Labs Ordered. Patient had labs drawn in office today. Appointments scheduled for OBUS on 01/23 and with BITA on 02/1201/04/2024 9:36 AM documented in this encounter [facility] 08-23-2023 Consult note Formatting of th is note is different from the original. Images from the original note were not included. [facility] ENDOCRINOLOGY AND INFERTILITY NEW PATIENT CLINIC NOTE SERVICE DATE: 08/23/2023 SERVICE TIME: 12:02 PM NAME: Evelyn Canela CHIEF COMPLAINT: Procreative management and counseling HISTORY OF PRESENT ILLNESS Evelyn Canela is a 22 year old female TTC since early 2021, unprotected intercourse since 10/2020 >18 months trying actively Reports 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 Hx STIs: negative Dyspareunia: negative History reviewed. No pertinent past medical history. History reviewed. No pertinent surgical history. FAMILY HISTORY Problem Relation Age of Onset Breast Cancer Maternal Grandmother other (bells palsy) Paternal Grandmother Heart Paternal Grandmother Stroke Paternal Grandfather multiple Social History Tobacco Use Smoking status: Never Smokeless tobacco: Never Substance Use Topics Alcohol use: Not Currently Drug use: Never Current Outpatient Medications Medication Sig vit no.124/iron/folic ( VITAMIN ORAL) Take by mouth. No current facility-administered medications for this visit. Allergies As of Date: 08/23/2023 (No Known Allergies) Fully Assessed 08/23/2023 Partner History Both patient and partner give permission to discuss test results and medication information with the other. Partner gives permission to access EMR. 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 Diagnoses and all orders for this visit: Primary female infertility Encounter for fertility testing - XR HYSTEROSALPINGOGRAM; Future Encounter for preconception consultation - TYPE + SCREEN; Future - TSH BLD; Future - VARICELLA ZOSTER IGG; Future - RUBELLA IGG AB; Future - SYPHILIS TOTAL W/REFLEX; Future - HIV 1 2 COMBO(AG/AB),WITH REFLEX TO DIFFERENTIATION; Future - HEPATITIS C ANTIBODY IA WITH CONFIRMATION; Future - HEP B SURF AG SCRN; Future - CBC; Future Female Evaluation: - screening: T&S, rubella and varicella immunity, carrier screening - ovulatory assessment: recommended OPKs - tubal evaluation: HSG Male Evaluation: - semen analysis Counseling: - counseled on diagnosis of infertility and etiologies - counseled on fecundity rate and outcomes, including SAB and genetic anomaly rates Next Steps: - folate and vit D supplementation - complete evaluation outlined above - follow up for next steps once all testing is completed, can see [facility] if all test are normal and route is IUI Dr. Mercedes Sexton M.D. Reproductive Endocrinology and Infertility I spent 40 minutes in the visit, with more than 50% of the total qnlv-xy-bwzq time of the visit in counseling / coordination of care. I spent a total of 50 minutes on the date of the service which included preparing to see the patient, pnah-ut-mvmr patient care, completing clinical documentation, obtaining and/or reviewing separately obtained history, counseling and educating the patient/family/caregiver, ordering medications, tests, or procedures, and care coordination (not separately reported). To patients reading this note: Please be advised the primary purpose of this note is for me to communicate with myself and other members of your medical team. Standard sentence structure is not always used. Medical terminology and medical abbreviations may be used. There may be grammatical and typographical errors missed in proofreading. documented in this encounter [facility] 08-02-2023 Miscellaneous Notes Formattin g of this note might be different from the original. LVM for the patient at [phone] with instructions on signing up for [facility]. New consult scheduled with Dr. Sexton the end of July - will need to send questionnaire. Kuldeep Pryor Ma August 02, 2023 3:12 PM documented in this encounter [facility] 03-29-2023 Evaluation note Encounter Date Diagnosis Assessment Notes March, Wellness examination (ICD-10 - Z00.00) [facility] Other 10-10-2022 Evaluation note* Encounter Date Diagnosis Assessment Notes Treatment Notes Treatment Clinical Notes Aug, Wellness examination (ICD-10 - Z00.00) She is here for a wellness exam today. 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 If she provides the office with a form that needs to be completed I can sign this for her. 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 She voices that she still gets poison jarret but deals with it. She saw an field account manager a few years ago but nothing was done for this. Aug, Syncope (ICD-10 - R55) She voices that she has not had any syncope episodes recently. Aug, Weight gain (ICD-10 - R63.5) She admits that she tends to eat poorly when she is at work but otherwise she eats pretty healthy. Aug, Other Her blood sugar when checked in 2020 was 108. She declines to have her blood sugar checked, if she is ever able to check her blood sugar on her own she should do this and report any elevated readings. [facility] Other 05-16-2022 Hospital Discharge instructions Patient Education 04/12/2022 11:02:15 Contact Dermatitis Contact Dermatitis Dermatitis is redness, soreness, and swelling (inflammation) of the skin. Contact dermatitis is a reaction to certain substances that touch the skin. Many different substances can cause contact dermatitis. There are two types of contact dermatitis: Irritant contact dermatitis. This type is caused by something that irritates your skin, such as having dry hands from washing them too often with soap. This type does not require previous exposure tothe substance for a reaction to occur. This is the most common type. Allergic contact dermatitis. This type is caused by a substance that you are allergic to, such as poison jarret. This type occurs when you have been exposed to the substance (allergen) and develop a sensitivity to it. Dermatitis may develop soon after your first exposure to the allergen, or it may notdevelop until the next time you are exposed and every time thereafter. What are the causes? Irritant contact dermatitis is most commonly caused by exposure to: Makeup. Soaps. Detergents. Bleaches. Acids. Metal salts, such as nickel. Allergic contact dermatitis is most commonly caused by exposure to: Poisonous plants. Chemicals. Jewelry. Latex. Medicines. Preservatives in products, such as clothing. What increases the risk? You are more likely to develop this condition if you have: A job that exposes you to irritants or allergens. Certain medical conditions, such as asthma or eczema. What are the signs or symptoms? Symptoms of this condition may occur on your body anywhere the irritant has touched you or is touched by you. Symptoms include: ?Dryness or flaking. ?Redness. ?Cracks. ?Itching. ?Pain or a burning feeling. ?Blisters. ?Drainage of small amounts of blood or clear fluid from skin cracks. With allergic contact dermatitis, there may also be swelling in areas such as the eyelids, mouth, or genitals. How is this diagnosed? This condition is diagnosed with a medical history and physical exam. A patch skin test may be performed to help determine the cause. If the condition is related to your job, you may need to see an occupational therapist home based. How is this treated? This condition is treated by checking for the cause of the reaction and protecting your skin from further contact. Treatment may also include: Steroid creams or ointments. Oral steroid medicines may be needed in more severe cases. Antibiotic medicines or antibacterial ointments, if a skin infection is present. Antihistamine lotion or an antihistamine taken by mouth to ease itching. A bandage (dressing). Follow these instructions at home: Skin care Moisturize your skin as needed. Apply cool compresses to the affected areas. Try applying baking soda paste to your skin. Stir water into baking soda until it reaches a paste-like consistency. Do not scratch your skin, and avoid friction to the affected area. Avoid the use of soaps, perfumes, and dyes. Medicines Take or apply ckyy-iwk-rgdfxve and prescription medicines only as told by your health care provider. If you were prescribed an antibiotic medicine, take or apply the antibiotic as told by your health care provider. Do not stop using the antibiotic even if your condition improves. Bathing Try taking a bath with: ?Epsom salts. Follow the instructions on the packaging. You can get these at your local pharmacy [employer] store. ?Baking soda. Pour a small amount into the bath as directed by your health care provider. ?Colloidal oatmeal. Follow the instructions on the packaging. You can get this at your local pharmacy or grocery store. Bathe less frequently, such as every other day. Bathe in lukewarm water. Avoid using hot water. Bandage care If you were given a bandage (dressing), change it as told by your health care provider. Wash your hands with soap and water before and after you change your dressing. If soap and water are not available, use hand casino dealer. General instructions Avoid the substance that caused your reaction. If you do not know what caused it, keep a journal totry to track what caused it. Write down: ?What you eat. ?What cosmetic products you use. ?What you drink. ?What you wear in the affected area. This includes jewelry. Check the affected areas every day for signs of infection. Check for: ?More redness, swelling, or pain. ?More fluid or blood. ?Warmth. ?Pus or a bad smell. Keep all follow-up visits as told by your health care provider. This is important. Contact a health care provider if: Your condition does not improve with treatment. Your condition gets worse. You have signs of infection such as swelling, tenderness, redness, soreness, or warmth in the affected area. You have a fever. You have new symptoms. Get help right away if: You have a severe headache, neck pain, or neck stiffness. You vomit. You feel very sleepy. You notice red streaks coming from the affected area. Your bone or joint underneath the affected area becomes painful after the skin has healed. The affected area turns darker. You have difficulty breathing. Summary Dermatitis is redness, soreness, and swelling (inflammation) of the skin. Contact dermatitis is a reaction to certain substances that touch the skin. Symptoms of this condition may occur on your body anywhere the irritant has touched you or is touched by you. This condition is treated by figuring out what caused the reaction and protecting your skin from further contact. Treatment may also include medicines and skin care. Avoid the substance that caused your reaction. If you do not know what caused it, keep a journal totry to track what caused it. Contact a health care provider if your condition gets worse or you have signs of infection such as swelling, tenderness, redness, soreness, or warmth in the affected area. This information is not intended to replace advice given to you by your health care provider. Make sure you discuss any questions you have with your health care provider. Document Released: 11/11/2001 Document Revised: 03/05/2020 Document Reviewed: 05/30/2019 [employer] Patient Education 2020 [employer]. [facility] Evaluation + Plan note No data available for this section [facility] Evaluation note* Diagnosis Primary female infertility- Primary Female infertility of unspecified origin Encounter for fertility testing Fertility testing Encounter for preconception consultation Other procreative management counseling and advice documented in this encounter [facility] Diagnosis Encounter for supervision of normal first in first trimester Encounter for screening for chromosomal anomalies 11 weeks gestation of documented in this encounter [facility]* Diagnosis Hx of migraine during - Primary 6 weeks gestation of Vomiting or nausea of Prior poor obstetrical history, antepartum, first trimester documented in this encounter [facility] HealthcareEvaluation noteNo assessment information availableKeenan [facility] Work Phone: Reason for referral (narrative)* Diagnostic Procedure Only (Routine) - Pending Review Specialty Diagnoses / Procedures Referred By Michael alcantar Referred To Contact XR IMAGING Diagnoses Encounter for fertility testing Procedures XR HYSTEROSALPINGOGRAM CATH & SALINE/CONTRAST SONOHYSTER/HYSTEROSALPI Mercedes Sexton MD [address] [place] [address] [place] [address] Referral ID Status Reason Start Date Expiration Date Visits Requested Visits Authorized [id number] Pending Review Auto-Generat ed Referral 08/23/2023 09/21/2024 1 1 [facility] Summary Purpose Family History No Family History Records Found Relationship Condition Age at Onset Recorded Date/T romario grandparent Malignant neoplasm Unknown Malignant neoplasm of breast Unknown grandparent History of stroke Unknown Advance Directives No Advanced Directives Records Found Advance Directive Response Recorded Date/ Time Advance Directives No June 11 1:55pm Chief Complaint and Reason for Visit Chief Complaint R21 Additional Source Comments INFORMATION SOURCE (unrecogn ized section and content) DATE CREATED AUTHOR 04/15/2022 Jeremy Romero [facility] DATE CREATED AUTHOR AUTHOR'S ORGANIZ ATION 05/06/2023 [facility] DATE CREATED AUTHOR AUTHOR'S ORGANIZ ATION 08/31/2023 [facility] DATE CREATED AUTHOR AUTHOR'S ORGANIZ ATION 06/15/[address] [facility] DATE CREATED AUTHOR AUTHOR'S ORGANIZ ATION 07/17/2024 [facility] EPIC REASON FOR VISIT (unrecogniz ed section and content) Reason Comments New Patient Reason Comments Consult Reason Comments Initial Visit Reason Comments Routine Visit 6 weeks 6 days. G lucose. Protein. (Could not leave urine) Pt is having migraines, and she is not getting any relief. Pt has tried several OTC medications. 1 headache a week, but lasts about 2 days. Source Comments (unrecognize d section and content) In the event this informatio n is protected by the Federal Confidentiality of Alcohol and Drug Abuse Patient Records regulations: The Federal rules restrict any use of the information to criminally investigate or prosecute any alcohol or drug abuse patient.[facility] the event this information is protected by the Federal Confidentiality of Alcohol and Drug Abuse Patient Records regulations: The Federal rules restrict any use of the information to criminally investigate or prosecute any alcohol or drug abuse patient.[facility] Care Teams (unrecognized sec tion and content) 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 Relationship Specialty Start Date End Date Unallocated, [place] Provider [address] [place] [address] PCP - General 07/20/23 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 Relationship Specialty Start Date End Date Unallocated, [place] Provider [address] [place] [address] PCP - General 07/20/23 Team Status: Active Member Role Status Dates Robel Holt DO Primary Care Provider Active Team Status: Inactive Member Role Status Dates Robel Holt DO Primary Care Provider Active S tart: June 11, 2024 End: June 11, 2024 MANAS García Attending Provider Active Start: June 11, 2024 End: June 11, 2024 Goals (unrecognized section and content) Goals may be documented in a n alternate section FOR RECORDS PERTAINING TO PATIENTS WHO ARE OR HAVE BEEN ENROLLED IN A CHEMICAL DEPENDENCY/SUBSTANCEABUSE PROGRAM, SOME INFORMATION MAY BE OMITTED. This clinical summary was aggregated from multiple sources. Caution should be exercised in using it in the provision of clinical care. This summary normalizes information from multiple sources, and as a consequence, information in this document may materially change the coding, format and clinical context of patient data. In addition, data may be omitted in some cases. CLINICAL DECISIONS SHOULD BE BASED ON THE PRIMARY CLINICAL RECORDS. [facility] [employer] [facility]. provides no warranty or guarantee of the accuracy or completeness of information in this document.
[2024-07-21 15:13] LABS: Basophils Percent Auto 0.4 % (0.2-2.0); Hematocrit 39.3 % (36.0-48.0); Hemoglobin 13.6 g/dL (12.0-16.0); Immature Granulocytes Abs Auto 0.02 10^3/uL (0.00-0.03); Immature Granulocytes Pct Auto 0.2 % (0.0-0.5); Lymphocytes Percent Auto 17.7 % (20.5-60.0); Mean Corpuscular HGB Conc 34.6 g/dL (29.9-35.2); Mean Corpuscular Hemoglobin 29.2 pg (26.7-34.0); Mean Corpuscular Volume 84.5 fL (81.0-99.0); Monocytes Absolute Auto 0.7 10^3/uL (0.3-0.8); Monocytes Percent Auto 6.5 % (1.7-12.0); Neutrophils Absolute Auto 8.5 10^3/uL (1.4-6.5); Neutrophils Percent Auto 75.2 % (43.0-75.0); Platelet Count 256 10^3/uL (150-450); Red Blood Count 4.65 10^6/uL (4.20-5.40); Red Cell Distribution Width 12.1 % (11.0-15.0); White Blood Count 11.2 10^3/uL (4.0-11.0)
[2024-07-21] MEDS: 0.9 % SODIUM CHLORIDE 1,000 ML 1000 ML IV (15:26)
[2024-07-21 15:35] LABS: Alanine Aminotransferase 20 U/L (14-59); Albumin Globulin Ratio 1.1; Albumin Level 3.8 g/dL (3.4-5.0); Alkaline Phosphatase 56 U/L (46-116); Anion Gap 14.3; Aspartate Amino Transferase 11 U/L (15-37); BUN Creatinine Ratio 13.2; Bilirubin Total 0.8 mg/dL (0.2-1.0); Calcium 9.3 mg/dL (8.5-10.1); Carbon Dioxide 25.4 mmol/L (21.0-32.0); Chloride 99 mmol/L (98-107); Estimated GFR (African America >60 (>=60); Estimated GFR (Non-African Ame >60 (>=60); Globulin 3.6 g/dL; Glucose 79 mg/dL (74-106); Potassium 3.7 mmol/L (3.5-5.1); Sodium 135 mmol/L (136-145); Total Protein 7.4 g/dL (6.4-8.2)
[2024-07-21] MEDS: PROCHLORPERAZINE 10 MG/2 ML VIAL 5 MG IV (15:41)
--- NOTE | 2024-07-21 16:29 | ED.GENADUL1 ---
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 No history of abdominal pain or bleeding Related Data Previous Rx's ?Medication ?Instructions ?Recorded promethazine 12.5 mg tablet 12.5 mg PO TID PRN nausea and 07/21/24 vomiting #10 tabs Allergies Allergy/AdvReac Type Severity Reaction Status Date / Time No Known Drug Allergies Allergy Verified 09/22/23 14:47 Opioid HPI Opioid Management Most Recent Opioid Data: No Data to Display Review of Systems ROS Status of ROS 10 or more systems reviewed and unremarkable except as noted in history and below PFSH PFSH Social History Smoking status: Never smoker Exam Narrative Exam Narrative: Nurses notes and vital signs reviewed and patient is not hypoxic. General: Well-appearing and in no apparent distress. Skin: Warm, dry, no pallor noted. No rash. Head: Normocephalic, atraumatic. Neck: Supple, non-tender. Eye: Pupils are equal, round and EOMI. No scleral icterus. Ears, Nose, Mouth, and Throat: TM are clear, no nasal mucosal hypertrophy. Oral mucosa is moist, no posterior oropharynx erythema, uvula is mid-line Cardiovascular: Regular Rate and Rhythm without murmur, gallop or rub. Respiratory: No accessory muscle use or respiratory distress. Lungs are clear to auscultation, no wheezing, rales or rhonchi Chest Wall: no tenderness Back: No midline thoracic or lumbar vertebral tenderness. No CVA tenderness Musculoskeletal: normal ROM, no calf or popliteal tenderness, no lower extremity edema/swelling GI: Abdomen is soft, non-distended. Normal bowel sounds. No masses appreciated. No tenderness to palpation. No rebound, guarding, or rigidity noted. Neurological: A&O x4. No cranial nerve dysfunction observed. No truncal ataxia. Moves all extremities. Sensation intact. Psychiatric: Cooperative and interactive. Normal mood and affect. Constitutional Vital Signs, click to edit/add: Last Vital Signs Temp 97.8 F 07/21/24 14:29 Pulse 99 H 07/21/24 14:29 Resp 18 07/21/24 14:29 BP 145/91 H 07/21/24 14:29 Pulse Ox 99 07/21/24 14:29 O2 Del Method Room Air 07/21/24 14:29 Course Vital Signs Vital signs: Vital Signs Temperature 97.8 F 07/21/24 14:29 Pulse Rate 99 H 07/21/24 14:29 Respiratory Rate 18 07/21/24 14:29 Blood Pressure 145/91 H 07/21/24 14:29 Pulse Oximetry 99 07/21/24 14:29 Oxygen Delivery Method Room Air 07/21/24 14:29 Temperature 97.8 F 07/21/24 14:29 Pulse Rate 99 H 07/21/24 14:29 Respiratory Rate 18 07/21/24 14:29 Blood Pressure 145/91 H 07/21/24 14:29 Pulse Oximetry 99 07/21/24 14:29 Oxygen Delivery Method Room Air 07/21/24 14:29 Medical Decision Making MDM Narrative Medical decision making narrative: CBC and chemistry showed no acute significant pathology except for some mild hyponatremia The patient was treated in the ER with Compazine after which she was feeling better and she was discharged home with Phenergan p.o. Patient was instructed about the importance of monitoring his symptoms in case of any new symptoms she is to come back to the ER The patient is to follow up with primary care physician in next 2-3 days or to return to the emergency department should any of the signs or symptoms worsen or new symptoms develop. The patient agrees with the following Diagnosis and Treatment plan and the patient will be discharged home. Lab Data Labs: Lab Results 07/21/24 Range/Units 15:05 WBC 11.2 H (4.0-11.0) 10^3/uL RBC 4.65 (4.20-5.40) 10^6/uL Hgb 13.6 (12.0-16.0) g/dL Hct 39.3 (36.0-48.0) % MCV 84.5 (81.0-99.0) fL MCH 29.2 (26.7-34.0) pg MCHC 34.6 (29.9-35.2) g/dL RDW 12.1 (11.0-15.0) % Plt Count 256 (150-450) 10^3/uL MPV 10.0 (9.5-13.5) fL Neut % (Auto) 75.2 H (43.0-75.0) % Lymph % (Auto) 17.7 L (20.5-60.0) % [place] % (Auto) 6.5 (1.7-12.0) % Eos % (Auto) 0.0 L (0.9-7.0) % Baso % (Auto) 0.4 (0.2-2.0) % Neut # (Auto) 8.5 H (1.4-6.5) 10^3/uL Lymph # (Auto) 2.0 (1.2-3.8) 10^3/uL [place] # (Auto) 0.7 (0.3-0.8) 10^3/uL Eos # (Auto) 0.0 (0.0-0.7) 10^3/uL Baso # (Auto) 0.0 (0.0-0.1) 10^3/uL Abs Immat Gran (auto) 0.02 (0.00-0.03) 10^3/uL Imm/Tot Granulo (auto) 0.2 (0.0-0.5) % Sodium 135 L (136-145) mmol/L Potassium 3.7 (3.5-5.1) mmol/L Chloride 99 (98-107) mmol/L Carbon Dioxide 25.4 (21.0-32.0) mmol/L Anion Gap 14.3 BUN 10.0 (7.0-18.0) mg/dL Creatinine 0.76 (0.55-1.02) mg/dL Est GFR ( Amer) >60 (>=60) Est GFR (Non-Af Amer) >60 (>=60) BUN/Creatinine Ratio 13.2 Glucose 79 (74-106) mg/dL Calcium 9.3 (8.5-10.1) mg/dL Total Bilirubin 0.8 (0.2-1.0) mg/dL AST 11 L (15-37) U/L ALT 20 (14-59) U/L Alkaline Phosphatase 56 (46-116) U/L Total Protein 7.4 (6.4-8.2) g/dL Albumin 3.8 (3.4-5.0) g/dL Globulin 3.6 g/dL Albumin/Globulin Ratio 1.1 Discharge Plan Discharge Stand Alone Forms: Work/School Release, Portal Instructions Chief Complaint: Nausea/Vomiting/Diarrhea Clinical Impression: Nausea and vomiting during Patient Disposition: Home, Self-Care Time of Disposition Decision: 16:29 Condition: Good Prescriptions / Home Meds: New promethazine 12.5 mg tablet 12.5 mg PO TID PRN (Reason: nausea and vomiting) Qty: 10 0RF Rx Instructions: 3 doses during day; last dose no later than 4 hr before bedtime Discontinued ondansetron HCl 4 mg tablet 4 mg PO Q6H PRN (Reason: nausea and vomiting) Print Language: Andorran Instructions: Nausea and Vomiting in (ED) Referrals: ROBEL HOLT [Primary Care Provider] - 1 week
--- NOTE | 2024-07-21 16:32 | PC.NURSE ---
pt able to drink water and have ice chips with no nausea reported at this time. pt expresses readiness for discharge and denies current questions at this time.
[2024-07-21 16:43] VITALS: PULSE 74; O2SAT 98
== END 2024-07-21 16:44 | disposition home or self-care (01) ==
PROVIDERS: Emergency Provider Emergency Medicine; PCP Family Medicine
DX: O21.9 Vomiting of pregnancy, unspecified (principal); Z3A.01 Less than 8 weeks gestation of pregnancy
CPT/HCPCS: 36415; 80053; 85025; 96361; 96374; 99284; J0780

== ENCOUNTER 2024-07-24 16:09 | Emergency (ER) | payer OTHER, SELFPAY ==
[2024-07-24 16:21] VITALS: BP 124/81; PULSE 96; TEMP 36.7; O2SAT 98; BMI 25.8
[2024-07-24 16:35] LABS: Basophils Percent Auto 0.2 % (0.2-2.0); Eosinophils Percent Auto 0.1 % (0.9-7.0); Hematocrit 42.1 % (36.0-48.0); Hemoglobin 14.8 g/dL (12.0-16.0); Immature Granulocytes Abs Auto 0.05 10^3/uL (0.00-0.03); Immature Granulocytes Pct Auto 0.4 % (0.0-0.5); Lymphocytes Percent Auto 14.6 % (20.5-60.0); Mean Corpuscular HGB Conc 35.2 g/dL (29.9-35.2); Mean Corpuscular Hemoglobin 29.4 pg (26.7-34.0); Mean Corpuscular Volume 83.7 fL (81.0-99.0); Monocytes Absolute Auto 0.9 10^3/uL (0.3-0.8); Monocytes Percent Auto 6.5 % (1.7-12.0); Neutrophils Absolute Auto 10.5 10^3/uL (1.4-6.5); Neutrophils Percent Auto 78.2 % (43.0-75.0); Platelet Count 266 10^3/uL (150-450); Red Blood Count 5.03 10^6/uL (4.20-5.40); Red Cell Distribution Width 12.1 % (11.0-15.0); White Blood Count 13.4 10^3/uL (4.0-11.0)
[2024-07-24] MEDS: 0.9 % SODIUM CHLORIDE 1,000 ML 1000 ML IV (16:43)
[2024-07-24] MEDS: ONDANSETRON PF 4 MG/2 ML VIAL IV (16:44)
[2024-07-24 16:49] LABS: Alanine Aminotransferase 35 U/L (14-59); Albumin Globulin Ratio 1.1; Alkaline Phosphatase 58 U/L (46-116); Anion Gap 16.1; Aspartate Amino Transferase 17 U/L (15-37); Bilirubin Total 0.9 mg/dL (0.2-1.0); Calcium 9.6 mg/dL (8.5-10.1); Carbon Dioxide 22.5 mmol/L (21.0-32.0); Chloride 100 mmol/L (98-107); Estimated GFR (African America >60 (>=60); Estimated GFR (Non-African Ame >60 (>=60); Globulin 3.7 g/dL; Glucose 88 mg/dL (74-106); Potassium 3.6 mmol/L (3.5-5.1); Sodium 135 mmol/L (136-145); Total Protein 7.7 g/dL (6.4-8.2)
[2024-07-24 16:49] LABS: Bilirubin Urine NEGATIVE (NEGATIVE); Blood Urine TRACE-I (NEGATIVE); Clarity Urine CLEAR (CLEAR); Color Urine YELLOW (YELLOW); Glucose Urine UA NEGATIVE (NEGATIVE); Ketones Urine >=80 mg/dL (NEGATIVE); Leukocyte Esterase Urine NEGATIVE (NEGATIVE); Nitrite Urine NEGATIVE (NEGATIVE); Protein Urine TRACE mg/dL (NEG/TRACE); Specific Gravity Urine >=1.030 (1.005-1.025)
[2024-07-24 16:51] LABS: Urine Microscopic Indicated YES
[2024-07-24 16:57] LABS: Bacteria Urine SMALL #/HPF (NONE SEEN); Mucus Urine LARGE (NONE SEEN); RBC Urine 0-2 #/HPF (0-2); WBC Urine NONE SEEN #/HPF (NONE SEEN)
[2024-07-24 16:58] LABS: Cast Seen? NONE SEEN #/LPF (NONE SEEN); Crystals Seen? None Seen #/HPF (None Seen); Squamous Epithelial Cell Urine FEW #/LPF (NONE/RARE); Urine Culture Indicated YES
--- NOTE | 2024-07-24 17:52 | ED.NAVMDI1 ---
HPI - Nausea/Vomiting/Diarrhea General Chief complaint: Nausea/Vomiting/Diarrhea Stated complaint: DEHYDRATION Time Seen by Provider: 07/24/24 16:24 History of Present Illness HPI Narrative: Patient presents to ED complaining of nausea vomiting. She is at about 7 weeks and she has had nausea vomiting for the past couple of weeks. She states she is lost 9 pounds. She was here over the weekend and was feeling better after IV hydration. She came back in today because she says she cannot keep anything down. She has had an ultrasound during this which Showed a normal IUP and she has another 1 scheduled in about a week and a half. No vaginal bleeding no gush of fluid no cramping. Patient states she was sent home on Phenergan and is not having any success with that. She also states Zofran was not helping. Related Data Previous Rx's ?Medication ?Instructions ?Recorded doxylamine succinate 25 mg tablet 25 mg PO BID PRN nausea and 07/24/24 (Unisom (doxylamine)) vomiting #14 tabs promethazine 25 mg rectal 25 mg CO BID PRN nausea and 07/24/24 suppository vomiting #12 ea Allergies Allergy/AdvReac Type Severity Reaction Status Date / Time No Known Drug Allergies Allergy Verified 09/22/23 14:47 Review of Systems ROS Status of ROS 10 or more systems reviewed and unremarkable except as noted in history and below [facility] Social History Smoking status: Never smoker Exam Narrative Exam Narrative: Time Seen: [] Vital Signs: [Per nurse's notes.] General: [Alert] Skin: [Warm, dry, no rash.] Head: [Normocephalic, atraumatic.] Neck: [Supple, trachea midline.] Eye: [Pupils are equal, round and reactive to light, extraocular movements are intact, normal conjunctiva.] Ears, nose, mouth and throat: oral mucosa moist. Cardiovascular: [Regular rate and rhythm, no murmur.] Respiratory: [Lungs are clear to auscultation, respirations are non-labored, breath sounds are equal.] Chest wall: [No tenderness, no deformity.] Gastrointestinal: [Soft, nontender, non distended, normal bowel sounds.] MSK: 5 out of 5 muscle strength x 4 extremities no calf pain or edema Lymphatics: [No lymphadenopathy.] Psychiatric: [Cooperative, appropriate mood & affect.] Neurological: [Alert and oriented to person, place, time, and situation, no focal neurological deficit observed.] Constitutional Vital Signs, click to edit/add: Last Vital Signs Temp 98.0 F 07/24/24 16:21 Pulse 96 H 07/24/24 16:21 Resp 18 07/24/24 16:21 BP 124/81 07/24/24 16:21 Pulse Ox 98 07/24/24 16:21 O2 Del Method Room Air 07/24/24 16:21 Course Vital Signs Vital signs: Vital Signs Temperature 98.0 F 07/24/24 16:21 Pulse Rate 96 H 07/24/24 16:21 Respiratory Rate 18 07/24/24 16:21 Blood Pressure 124/81 07/24/24 16:21 Pulse Oximetry 98 07/24/24 16:21 Oxygen Delivery Method Room Air 07/24/24 16:21 Temperature 98.0 F 07/24/24 16:21 Pulse Rate 96 H 07/24/24 16:21 Respiratory Rate 18 07/24/24 16:21 Blood Pressure 124/81 07/24/24 16:21 Pulse Oximetry 98 07/24/24 16:21 Oxygen Delivery Method Room Air 07/24/24 16:21 MDM - Nausea/Vomiting/Diarrhea MDM Narrative Medical decision making narrative: Patient's labs show ketones in the urine consistent with dehydration. Potassium is normal. Sodium is slightly low. Patient is feeling better after fluids and Zofran. She was speaking to Dr. Ortiz on the phone and he suggested Unisom as well as he is going to call her in Reglan. I will call in Phenergan suppositories as well in case the Reglan is not working. Patient instructed not to do all of these at once but pick what works best for her. Follow-up with Dr. Capellan in the office as scheduled and track her weight at home. Patient comfortable care plan for home. Differential Diagnosis Differential diagnosis: Likely gastroenteritis and other (Hyperemesis gravidarum) Lab Data Attestation: I reviewed the patient's lab results. Labs: Lab Results 07/24/24 07/24/24 Range/Units 16:25 16:34 WBC 13.4 H (4.0-11.0) 10^3/uL RBC 5.03 (4.20-5.40) 10^6/uL Hgb 14.8 (12.0-16.0) g/dL Hct 42.1 (36.0-48.0) % MCV 83.7 (81.0-99.0) fL MCH 29.4 (26.7-34.0) pg MCHC 35.2 (29.9-35.2) g/dL RDW 12.1 (11.0-15.0) % Plt Count 266 (150-450) 10^3/uL MPV 10.0 (9.5-13.5) fL Neut % (Auto) 78.2 H (43.0-75.0) % Lymph % (Auto) 14.6 L (20.5-60.0) % [place] % (Auto) 6.5 (1.7-12.0) % Eos % (Auto) 0.1 L (0.9-7.0) % Baso % (Auto) 0.2 (0.2-2.0) % Neut # (Auto) 10.5 H (1.4-6.5) 10^3/uL Lymph # (Auto) 2.0 (1.2-3.8) 10^3/uL [place] # (Auto) 0.9 H (0.3-0.8) 10^3/uL Eos # (Auto) 0.0 (0.0-0.7) 10^3/uL Baso # (Auto) 0.0 (0.0-0.1) 10^3/uL Abs Immat Gran (auto) 0.05 H (0.00-0.03) 10^3/uL Imm/Tot Granulo (auto) 0.4 (0.0-0.5) % Sodium 135 L (136-145) mmol/L Potassium 3.6 (3.5-5.1) mmol/L Chloride 100 (98-107) mmol/L Carbon Dioxide 22.5 (21.0-32.0) mmol/L Anion Gap 16.1 BUN 6.0 L (7.0-18.0) mg/dL Creatinine 0.60 (0.55-1.02) mg/dL Est GFR ( Amer) >60 (>=60) Est GFR (Non-Af Amer) >60 (>=60) BUN/Creatinine Ratio 10.0 Glucose 88 (74-106) mg/dL Calcium 9.6 (8.5-10.1) mg/dL Total Bilirubin 0.9 (0.2-1.0) mg/dL AST 17 (15-37) U/L ALT 35 (14-59) U/L Alkaline Phosphatase 58 (46-116) U/L Total Protein 7.7 (6.4-8.2) g/dL Albumin 4.0 (3.4-5.0) g/dL Globulin 3.7 g/dL Albumin/Globulin Ratio 1.1 Urine Color Yellow (YELLOW) Urine Clarity Clear (CLEAR) Urine pH 6.0 (5.0-9.0) Ur Specific [place] >=1.030 A (1.005-1.025) Urine Protein Trace (NEG/TRACE) mg/dL Urine Glucose (UA) Negative (NEGATIVE) mg/dL Urine Ketones >=80 A (NEGATIVE) mg/dL Urine Occult Blood Trace-i (NEGATIVE) Urine Nitrite Negative (NEGATIVE) Urine Bilirubin Negative (NEGATIVE) Urine Urobilinogen 1.0 (0.2-1.0) EU/dL Ur Leukocyte Esterase Negative (NEGATIVE) Urine RBC 0-2 (0-2) #/HPF Urine WBC None seen (NONE SEEN) #/HPF Ur Squamous Epith Cells Few A (NONE/RARE) #/LPF Urine Crystals None seen (None Seen) #/HPF Urine Bacteria Small A (NONE SEEN) #/HPF Urine Casts None seen (NONE SEEN) #/LPF Urine Mucus Large A (NONE SEEN) Ur Culture Indicated? Yes Discharge Plan Discharge Stand Alone Forms: Work/School Release, Portal Instructions Chief Complaint: Nausea/Vomiting/Diarrhea Clinical Impression: Nausea and vomiting during Patient Disposition: Home, Self-Care Time of Disposition Decision: 18:06 Condition: Good Mode of Transportation: Private Vehicle Prescriptions / Home Meds: New Unisom (doxylamine) 25 mg tablet 25 mg PO BID PRN (Reason: nausea and vomiting) Qty: 14 0RF promethazine 25 mg suppository 25 mg CO BID PRN (Reason: nausea and vomiting) Qty: 12 0RF Print Language: [place] Islander Instructions: Hyperemesis Gravidarum (ED) Referrals: ROBEL HOLT [Primary Care Provider] - 1 week ANNEMARIE PAYNE [Physician] - 1 week Procedures ED Procedure Instructions Procedures Procedures: Bedside ultrasound shows IUP. Unable to calculate heart tones due to very early gestational age.
[2024-07-24 18:22] VITALS: BP 124/78; PULSE 72; O2SAT 99
== END 2024-07-24 18:22 | disposition home or self-care (01) ==
PROVIDERS: Emergency Provider Emergency Medicine; PCP Family Medicine
DX: O26.891 Other specified pregnancy related conditions, first trimester (principal); R11.2 Nausea with vomiting, unspecified; Z3A.01 Less than 8 weeks gestation of pregnancy
CPT/HCPCS: 36415; 80053; 81001; 85025; 87086; 96361; 96374; 99284; J2405

== ENCOUNTER 2025-03-06 14:48 | Outpatient (OUT) | payer OTHER, SELFPAY | END 2025-03-06 14:49 | disposition home or self-care (01) | LOC: LAB 14:50 | PROVIDERS: PCP Family Medicine; Visit Provider Obstetrics & Gynecology | DX: O26.643 Intrahepatic cholestasis of pregnancy, third trimester (principal) | CPT/HCPCS: 36415; 82239 ==

== ENCOUNTER 2025-03-20 07:24 | Emergency (ER) | payer OTHER, SELFPAY ==
[2025-03-20 07:40] VITALS: BP 160/100; PULSE 83; TEMP 36.9; O2SAT 98; BMI 28.1
--- NOTE | 2025-03-20 07:48 | ED.GENADUL1 ---
HPI HPI - General Adult General Chief complaint: Back Pain/Injury Stated complaint: POSSIBLE KIDNEY STONE Time Seen by Provider: 03/20/25 07:27 Source: patient Mode of arrival: walk-in Limitations: no limitations History of Present Illness HPI narrative: 24-year-old female who is 8 days from vaginal delivery presents for a few day history of dysuria and back pain. No injury or fever or vomiting. She is never had a kidney stone but she has had UTIs in the past. Related Data Previous Rx's ?Medication ?Instructions ?Recorded cephalexin 500 mg capsule 500 mg PO TID 7 days #21 caps 03/20/25 Allergies Allergy/AdvReac Type Severity Reaction Status Date / Time No Known Drug Allergies Allergy Verified 03/20/25 07:39 Opioid HPI Opioid Management Most Recent Opioid Data: No Data to Display Review of Systems ROS Narrative A ten point review of systems is negative except as noted above. PFSH PFSH Social History Smoking status: Never smoker Little interest or pleasure in doing things: not at all Feeling down, depressed, or hopeless: not at all Exam Narrative Exam Narrative: Nurses note and vital signs reviewed and patient is not hypoxic. General: The patient appears in no apparent distress. Skin: Warm, dry, no pallor noted. There is no rash noted. Head: Normocephalic, atraumatic Eye: Normal conjunctiva, no drainage Ears, Nose, Mouth, and Throat: oral mucosa is moist. Nares patent. Cardiovascular: Regular Rate and Rhythm Respiratory: Patient is in no distress, no accessory muscle use, lungs are clear to auscultation, no wheezing, rales or rhonchi Back: non-tender, no CVA tenderness bilaterally to percussion. GI: Nondistended Musculoskeletal: The patient has no evidence of calf tenderness, no pitting edema, symmetrical pulses noted bilaterally Neurological: A&O, normal speech Psychiatric: Cooperative Constitutional Vital Signs, click to edit/add: Last Vital Signs Temp 98.5 F 03/20/25 07:40 Pulse 83 03/20/25 07:40 Resp 20 03/20/25 07:40 BP 160/100 H 03/20/25 07:40 Pulse Ox 98 03/20/25 07:40 O2 Del Method Room Air 03/20/25 07:40 Course Vital Signs Vital signs: Vital Signs Temperature 98.5 F 03/20/25 07:40 Pulse Rate 83 03/20/25 07:40 Respiratory Rate 20 03/20/25 07:40 Blood Pressure 160/100 H 03/20/25 07:40 Pulse Oximetry 98 03/20/25 07:40 Oxygen Delivery Method Room Air 03/20/25 07:40 Temperature 98.5 F 03/20/25 07:40 Pulse Rate 83 03/20/25 07:40 Respiratory Rate 20 03/20/25 07:40 Blood Pressure 160/100 H 03/20/25 07:40 Pulse Oximetry 98 03/20/25 07:40 Oxygen Delivery Method Room Air 03/20/25 07:40 Medical Decision Making MDM Narrative Medical decision making narrative: UTI is identified. She started on Keflex here and prescribed Keflex. Culture pending. Treatment diagnosis and follow-up were discussed with the patient. Differential Diagnosis Differential Diagnosis: UTI, cystitis Lab Data Lab results reviewed: Yes I reviewed the patient's lab results Labs: Lab Results 03/20/25 Range/Units 07:45 Urine Color Lt. yellow (YELLOW) Urine Clarity Sl cloudy (CLEAR) Urine pH 7.0 (5.0-9.0) Ur Specific [place] 1.015 (1.005-1.025) Urine Protein 100 A (NEG/TRACE) mg/dL Urine Glucose (UA) Negative (NEGATIVE) mg/dL Urine Ketones Negative (NEGATIVE) mg/dL Urine Occult Blood Moderate A (NEGATIVE) Urine Nitrite Negative (NEGATIVE) Urine Bilirubin Negative (NEGATIVE) Urine Urobilinogen 0.2 (0.2-1.0) EU/dL Ur Leukocyte Esterase Moderate A (NEGATIVE) Urine RBC 2-5 A (0-2) #/HPF Urine WBC 20-50 A (NONE SEEN) #/HPF Ur Squamous Epith Cells Few A (NONE/RARE) #/LPF Ur Transition Epith Cell Rare A (NONE SEEN) #/LPF Urine Crystals None seen (None Seen) #/HPF Urine Bacteria Small A (NONE SEEN) #/HPF Urine Casts None seen (NONE SEEN) #/LPF Urine Mucus Small A (NONE SEEN) Ur Culture Indicated? Yes-[facility] [place] Discharge Plan Discharge Chief Complaint: Back Pain/Injury Clinical Impression: Urinary tract infection Patient Disposition: Home, Self-Care Time of Disposition Decision: 08:39 Condition: Good Mode of Transportation: Private Vehicle Prescriptions / Home Meds: New cephalexin 500 mg capsule 500 mg PO TID 7 Days Qty: 21 0RF Print Language: Kazakh Instructions: Urinary Tract Infection in Women (ED) Referrals: ROBEL HOLT [Primary Care Provider] - 1 week
[2025-03-20 08:05] LABS: Bilirubin Urine NEGATIVE (NEGATIVE); Blood Urine MODERATE (NEGATIVE); Clarity Urine SL CLOUDY (CLEAR); Color Urine LT. YELLOW (YELLOW); Glucose Urine UA NEGATIVE (NEGATIVE); Ketones Urine NEGATIVE (NEGATIVE); Leukocyte Esterase Urine MODERATE (NEGATIVE); Nitrite Urine NEGATIVE (NEGATIVE); Protein Urine 100 mg/dL (NEG/TRACE); Specific Gravity Urine 1.015 (1.005-1.025); Urobilinogen Urine 0.2 EU/dL (0.2-1.0)
[2025-03-20 08:34] LABS: Bacteria Urine SMALL #/HPF (NONE SEEN); Cast Seen? NONE SEEN #/LPF (NONE SEEN); Crystals Seen? None Seen #/HPF (None Seen); Mucus Urine SMALL (NONE SEEN); Squamous Epithelial Cell Urine FEW #/LPF (NONE/RARE); Transitional Epi Cells Urine RARE #/LPF (NONE SEEN); WBC Urine 20-50 #/HPF (NONE SEEN)
[2025-03-20 08:35] LABS: Urine Culture Indicated YES-FRMC
[2025-03-20] MEDS: CEPHALEXIN 500 MG CAPSULE PO (09:00)
== END 2025-03-20 08:47 | disposition home or self-care (01) ==
PROVIDERS: Emergency Provider Emergency Medicine; PCP Family Medicine
DX: O86.20 Urinary tract infection following delivery, unspecified (principal); N39.0 Urinary tract infection, site not specified; Z87.440 Personal history of urinary (tract) infections
CPT/HCPCS: 81001; 84703; 87086; 87088; 87186; 99283